=== PATIENT | female | born 1950 | race Hispanic/Latino ===

== ENCOUNTER 2018-10-08 12:11 | Emergency (ER) | payer OTHER ==
--- NOTE | 2018-10-08 12:35 | EDPHYS ---
Physician Documentation [facility] Name: Madhuri Ta Age: 67 yrs Sex: Female : 1950 Arrival Date: 10/08/2018 Time: 12:17 Bed 12 Private MD: Sharee Piedra F ED Physician Lj Gray HPI: 10/08 12:31 This 67 yrs old Female presents to ER via Ambulatory with complaints of Right pm1 Ear Pain. 12:31 The patient presents with pain. The complaints affect the right ear. Onset: The pm1 symptoms/episode began/occurred 3 day(s) ago. Modifying factors: The symptoms are alleviated by nothing, the symptoms are aggravated by nothing. Associated signs and symptoms: Pertinent negatives: cough, fever, nausea, sinus trouble, vomiting. Severity of symptoms: in the emergency department the symptoms are worse. The patient has experienced similar episodes in the past, several times, today's symptoms are similar, ear pain with getting water in ear while washing hair. The patient has not recently seen a physician. Historical: - Allergies: 12:16 No Known Allergies; hj - PMHx: 12:16 None; hj - PSHx: 12:16 None; hj - Immunization history:: Adult Immunizations not immunized. - Social history:: Smoking status: Patient/guardian denies using tobacco, Patient/guardian denies using alcohol. - Ebola Screening: : Patient negative for fever greater than or equal to 101.5 degrees Fahrenheit, and additional compatible Ebola Virus Disease symptoms Patient denies exposure to infectious person Patient denies travel to an Ebola-affected area in the 21 days before illness onset. ROS: 12:31 Constitutional: Negative for fever, chills, and weight loss, Eyes: Negative for injury, pm1 pain, redness, and discharge, Neck: Negative for injury, pain, and swelling, Cardiovascular: Negative for chest pain, palpitations, and edema, Respiratory: Negative for shortness of breath, cough, wheezing, and pleuritic chest pain, Abdomen/GI: Negative for abdominal pain, nausea, vomiting, diarrhea, and constipation, Back: Negative for injury and pain. 12:31 MS/Extremity: Negative for injury and deformity, Skin: Negative for injury, rash, and discoloration, Neuro: Negative for headache, weakness, numbness, tingling, and seizure. 12:31 ENT: Positive for ear pain, Negative for drainage from ear(s), sore throat. Exam: 12:31 Constitutional: This is a well developed, well nourished patient who is awake, alert, pm1 and in no acute distress. Head/Face: Normocephalic, atraumatic. Eyes: Pupils equal round and reactive to light, extra-ocular motions intact. Lids and lashes normal. Conjunctiva and sclera are non-icteric and not injected. Cornea within normal limits. Periorbital areas with no swelling, redness, or edema. 12:31 Neck: Trachea midline, no thyromegaly or masses palpated, and no cervical lymphadenopathy. Supple, full range of motion without nuchal rigidity, or vertebral point tenderness. No Meningismus. Chest/axilla: Normal chest wall appearance and motion. Nontender with no deformity. No lesions are appreciated. Cardiovascular: Regular rate and rhythm with a normal S1 and S2. No gallops, murmurs, or rubs. Normal PMI, no JVD. No pulse deficits. Respiratory: Lungs have equal breath sounds bilaterally, clear to auscultation and percussion. No rales, rhonchi or wheezes noted. No increased work of breathing, no retractions or nasal flaring. Abdomen/GI: Soft, non-tender, with normal bowel sounds. No distension or tympany. No guarding or rebound. No evidence of tenderness throughout. Back: No spinal tenderness. No costovertebral tenderness. Full range of motion. Skin: Warm, dry with normal turgor. Normal color with no rashes, no lesions, and no evidence of cellulitis. MS/ Extremity: Pulses equal, no cyanosis. Neurovascular intact. Full, normal range of motion. 12:31 ENT: External ear(s): are unremarkable, Ear canal(s): erythema, that is minimal, of the right canal, TM's: bulging, on the right, erythema, that is mild, on the right, rupture, is not appreciated, Nose: is normal, Mouth: is normal, Posterior pharynx: is normal. 12:31 Neuro: Orientation: is normal, Motor: is normal, moves all fours. Vital Signs: 12:17 BP 150 / 73; Pulse 80; Resp 18; Temp 98.8(TE); Pulse Ox 96% on R/A; Weight 67.13 kg; hj Height 5 ft. 2 in. (157.48 cm); Pain 10/10; 12:17 Body Mass Index 27.07 (67.13 kg, 157.48 cm) MDM: 12:24 Patient medically screened. pm1 12:32 Data reviewed: vital signs. Data interpreted: Pulse oximetry: on room air is 96 %. pm1 Interpretation: normal. Counseling: I had a detailed discussion with the patient and/or guardian regarding: the historical points, exam findings, and any diagnostic results supporting the discharge/admit diagnosis, the need for outpatient follow up, an ENT specialist, to return to the emergency department if symptoms worsen or persist or if there are any questions or concerns that arise at home. Administered Medications: No medications were administered Disposition: 13:18 Co-signature as Attending Physician, Lj Gray MD I agree with the assessment and kdr plan of care. Disposition: 10/08/18 12:33 Discharged to Home. Impression: Otitis media, unspecified, right ear, Unspecified otitis externa, right ear. - Condition is Stable. - Discharge Instructions: Otitis Media, Adult, Otitis Externa. - Prescriptions for Cortisporin 3.5- 10,000-1 mg/mL-unit/mL-% Otic solution - instill 4 drop by OTIC route every 6 hours for 10 days; 1 bottle. Amoxicillin 500 mg Oral Capsule - take 1 capsule by ORAL route every 8 hours for 10 days; 30 tablet. - Medication Reconciliation Form, Thank You Letter, Antibiotic Education, Prescription Opioid Use form. - Follow up: Emergency Department; When: As needed; Reason: Worsening of condition. Follow up: Private Physician; When: 2 - 3 days; Reason: Recheck today's complaints, Continuance of care, Re-evaluation by your physician. - Problem is new. - Symptoms have improved. Signatures: Lj Gray MD MD [facility] Surinder Goldberg RN RN hj Jed Roland, JOHNNY VICE PRESIDENT AND PORT[employer]IO MANAGER pm1 Corrections: (The following items were deleted from the chart) 12:40 12:33 10/08/2018 12:33 Discharged to Home. Impression: Otitis media, unspecified, right hj ear; Unspecified otitis externa, right ear. Condition is Stable. Forms are Medication Reconciliation Form, Thank You Letter, Antibiotic Education, Prescription Opioid Use. Follow up: Emergency Department; When: As needed; Reason: Worsening of condition. Follow up: Private Physician; When: 2 - 3 days; Reason: Recheck today's complaints, Continuance of care, Re-evaluation by your physician. Problem is new. Symptoms have improved. pm1
--- NOTE | 2018-10-08 12:35 | ER ---
Nurse's Notes [facility] Name: Madhuri Ta Age: 67 yrs Sex: Female : 1950 Arrival Date: 10/08/2018 Time: 12:17 Bed 12 Private MD: Sharee Piedra F Diagnosis: Otitis media, unspecified, right ear;Unspecified otitis externa, right ear Presentation: 10/08 12:15 Presenting complaint: Patient states: i have R ear pain for 3 days now and i cant take hj it anymore; denies discharges;. Transition of care: patient was not received from another setting of care. Onset of symptoms was October 08, 2018. Risk Assessment: Do you want to hurt yourself or someone else? Patient reports no desire to harm self or others. Initial Sepsis Screen: Does the patient meet any 2 criteria? No. Patient's initial sepsis screen is negative. Does the patient have a suspected source of infection? No. Patient's initial sepsis screen is negative. Care prior to arrival: None. 12:15 Method Of Arrival: Ambulatory 12:15 Acuity: JOSE 4 hj Triage Assessment: 12:39 General: Appears in no apparent distress. uncomfortable, Behavior is calm, cooperative, hj appropriate for age. Pain: Complains of pain in right ear. EENT: Reports pain in right ear. Historical: - Allergies: 12:16 No Known Allergies; hj - PMHx: 12:16 None; hj - PSHx: 12:16 None; hj - Immunization history:: Adult Immunizations not immunized. - Social history:: Smoking status: Patient/guardian denies using tobacco, Patient/guardian denies using alcohol. - Ebola Screening: : Patient negative for fever greater than or equal to 101.5 degrees Fahrenheit, and additional compatible Ebola Virus Disease symptoms Patient denies exposure to infectious person Patient denies travel to an Ebola-affected area in the 21 days before illness onset. Screenin:39 Abuse screen: Denies threats or abuse. Denies injuries from another. Nutritional hj screening: No deficits noted. Tuberculosis screening: No symptoms or risk factors identified. Fall Risk None identified. Vital Signs: 12:17 BP 150 / 73; Pulse 80; Resp 18; Temp 98.8(TE); Pulse Ox 96% on R/A; Weight 67.13 kg; hj Height 5 ft. 2 in. (157.48 cm); Pain 10/10; 12:17 Body Mass Index 27.07 (67.13 kg, 157.48 cm) ED Course: 12:16 Triage completed. hj 12:17 Patient arrived in ED. mr 12:17 Arm band placed on right wrist. hj 12:18 Sharee Piedra MD is Private Physician. mr 12:19 Jed Roland [facility] pm1 12:19 Lj Gray MD is Attending Physician. pm1 12:39 No provider procedures requiring assistance completed. Patient did not have IV access hj during this emergency room visit. 12:40 Patient has correct armband on for positive identification. Side rails up X 1. hj Administered Medications: No medications were administered Outcome: 12:33 Discharge ordered by MD. pm1 12:40 Discharged to home ambulatory. hj 12:40 Condition: stable 12:40 Discharge instructions given to patient, Instructed on discharge instructions, follow up and referral plans. medication usage, Demonstrated understanding of instructions, follow-up care, medications, Prescriptions given X 2. 12:40 Patient left the ED. Signatures: Efren Trang mr YusufSurinder, RN RN Jed Roland NP BUDGET CONTROLLER pm1 Corrections: (The following items were deleted from the chart) 12:18 12:17 Pulse 80bpm; Resp 18bpm; Pulse Ox 96% RA; Temp 98.8F Temporal; 67.13 kg; Height 5 hj ft. 2 in.; BMI: 27.0; Pain 10/10; hj
== END 2018-10-08 12:40 | disposition home or self-care (01) ==
LOC: ER 12:11
DX: H66.91 Otitis media, unspecified, right ear (principal); H60.91 Unspecified otitis externa, right ear
CPT/HCPCS: 99282

== ENCOUNTER 2019-12-07 12:55 | Emergency (ER) | payer OTHER ==
--- NOTE | 2019-12-07 14:11 | EDPHYS ---
Physician Documentation [facility] Name: Madhuri Ta Age: 69 yrs Sex: Female : 1950 Arrival Date: 12/07/2019 Time: 12:57 Bed 24 Private MD: ED Physician Valentin Khalil HPI: 12/06 14:07 This 69 yrs old Female presents to ER via Ambulatory with complaints of Rash - jmm poison mell. 14:07 The patient's rash thought to be caused by Dermatitis. Onset: The symptoms/episode jmm began/occurred gradually, 1 month(s) ago. Associated signs and symptoms: Pertinent positives: itching, Pertinent negatives: fever, Pain swelling of lips, swelling of throat, swelling of tongue. This is a 69 year old female with no chronic medical conditions that presents to the ED with complaints of rash to the right arm which initially began after performing yard work 1 month prior. Symptoms returned this morning after mowing lawn today. . Historical: - Allergies: 13:23 No Known Allergies; jd3 - Home Meds: 13:23 None [Active]; jd3 - PMHx: 13:23 None; jd3 - PSHx: 13:23 ; jd3 - Immunization history:: Adult Immunizations up to date. - Social history:: Smoking status: Patient reports the use of cigarette tobacco products, smokes one pack cigarettes per day. ROS: 14:07 Constitutional: Negative for fever, chills, and weight loss, Cardiovascular: Negative jmm for chest pain, palpitations, and edema, Respiratory: Negative for shortness of breath, cough, wheezing, and pleuritic chest pain. 14:07 MS/extremity: Positive for erythema, swelling. 14:07 All other systems are negative. Exam: 14:07 Constitutional: This is a well developed, well nourished patient who is awake, alert, jmm and in no acute distress. Head/Face: atraumatic. Eyes: EOMI, no conjunctival erythema appreciated ENT: Moist Mucus Membranes Neck: Trachea midline, Supple Chest/axilla: Normal chest wall appearance and motion. Cardiovascular: Regular rate and rhythm. No edema appreciated Respiratory: Normal respirations, no respiratory distress appreciated Abdomen/GI: Non distended, soft Back: Normal ROM 14:07 Skin: Appearance: Color: normal in color, erythema noted to the right forearm, consistent with dermatitis. 14:07 Neuro: Orientation: is normal, Mentation: is normal, Memory: is normal. 14:07 Psych: Behavior/mood is pleasant, cooperative. Vital Signs: 13:23 BP 155 / 81; Pulse 75; Resp 16 S; Temp 98.2(O); Pulse Ox 99% on R/A; Weight 65.77 kg jd3 (R); Height 5 ft. 2 in. (157.48 cm) (R); Pain 8/10; 14:28 BP 137 / 69; ks5 13:23 Body Mass Index 26.52 (65.77 kg, 157.48 cm) jd3 MDM: 13:42 Patient medically screened. [facility] 14:09 Data reviewed: vital signs, nurses notes. Counseling: I had a detailed discussion with tosha the patient and/or guardian regarding: the historical points, exam findings, and any diagnostic results supporting the discharge/admit diagnosis, the need for outpatient follow up, to return to the emergency department if symptoms worsen or persist or if there are any questions or concerns that arise at home. ED course: Patient is alert and non toxic in appearance in the ED. Patient is advised to follow up with pcp and otherwise given strict return precautions. patient understood and agrees with the plan of care. . Administered Medications: 14:15 Drug: Decadron 10 mg Route: IM; Site: left gluteus; ks5 14:28 Follow up: BP 137 / 69 ks5 Disposition: 12/07 07:17 Co-signature as Attending Physician, Valentin Khalil MD I agree with the assessment and [facility] plan of care. Disposition: 12/07/19 14:10 Discharged to Home. Impression: Dermatitis, unspecified. - Condition is Stable. - Discharge Instructions: Contact Dermatitis. - Prescriptions for Hydroxyzine HCl 25 mg Oral Tablet - take 1 tablet by ORAL route every 6 hours As needed; 30 tablet. Prednisone 20 mg Oral Tablet - take 1 tablet by ORAL route once daily 12 days Please take 3 tabs by mouth daily for 3 days, then take 2 tabs by mouth daily for 3 days, then take 1 tab by mouth daily for 3 days, then take 1/2 tab by mouth daily for 3 days.; 20 tablet. - Medication Reconciliation Form, Thank You Letter, Antibiotic Education, Prescription Opioid Use form. - Follow up: Private Physician; When: 2 - 3 days; Reason: Recheck today's complaints, Continuance of care, Re-evaluation by your physician. Signatures: Valentin Khalil MD MD cha Mickail, Joel, PA PA jmm Calderon, Audri, RN RN aa5 Martha Kern RN RN ks5 Armani Kramer RN RN jd3 Corrections: (The following items were deleted from the chart) 12/06 14:38 14:10 12/07/2019 14:10 Discharged to Home. Impression: Dermatitis, unspecified. aa5 Condition is Stable. Forms are Medication Reconciliation Form, Thank You Letter, Antibiotic Education, Prescription Opioid Use. Follow up: Private Physician; When: 2 - 3 days; Reason: Recheck today's complaints, Continuance of care, Re-evaluation by your physician. tosha
--- NOTE | 2019-12-07 14:11 | ER ---
Nurse's Notes [facility] Name: Madhuri Ta Age: 69 yrs Sex: Female : 1950 Arrival Date: 12/07/2019 Time: 12:57 Bed 24 Private MD: Diagnosis: Dermatitis, unspecified Presentation: 12/06 13:21 Chief complaint: Patient states: "I had poison mell about a week ago, now it flared back jd3 yesterday when I was mowing the lawn.". Coronavirus screen: At this time, the client does not indicate any symptoms associated with coronavirus-19. Ebola Screen: Patient negative for fever greater than or equal to 101.5 degrees Fahrenheit, and additional compatible Ebola Virus Disease symptoms. Initial Sepsis Screen: Does the patient meet any 2 criteria? No. Patient's initial sepsis screen is negative. Does the patient have a suspected source of infection? No. Patient's initial sepsis screen is negative. Risk Assessment: Do you want to hurt yourself or someone else? Patient reports no desire to harm self or others. Onset of symptoms was December 06, 2019. 13:21 Method Of Arrival: Ambulatory jd3 13:21 Acuity: JOSE 4 jd3 Historical: - Allergies: 13:23 No Known Allergies; jd3 - Home Meds: 13:23 None [Active]; jd3 - PMHx: 13:23 None; jd3 - PSHx: 13:23 ; jd3 - Immunization history:: Adult Immunizations up to date. - Social history:: Smoking status: Patient reports the use of cigarette tobacco products, smokes one pack cigarettes per day. Assessment: 14:23 General: Appears in no apparent distress. Pain: Complains of pain in c/o soreness to ks5 right forarm from "poison mell" per pt. Derm: Rash noted that is itchy, red, raised. Vital Signs: 13:23 BP 155 / 81; Pulse 75; Resp 16 S; Temp 98.2(O); Pulse Ox 99% on R/A; Weight 65.77 kg jd3 (R); Height 5 ft. 2 in. (157.48 cm) (R); Pain 8/10; 14:28 BP 137 / 69; ks5 13:23 Body Mass Index 26.52 (65.77 kg, 157.48 cm) jd3 ED Course: 12:57 Patient arrived in ED. as 13:22 Triage completed. jd3 13:23 Arm band placed on. jd3 13:40 Brando Fang PA is PHCP. tosha 13:40 Valentin Khalil MD is Attending Physician. tosha Administered Medications: 14:15 Drug: Decadron 10 mg Route: IM; Site: left gluteus; ks5 14:28 Follow up: BP 137 / 69 ks5 Outcome: 14:10 Discharge ordered by . tsoha 14:21 Discharged to home ambulatory. ks5 14:21 Condition: good 14:21 Discharge instructions given to patient, Instructed on discharge instructions, follow up and referral plans. medication usage, Demonstrated understanding of instructions, follow-up care, medications, Prescriptions given X 2. 14:38 Patient left the ED. aa5 Signatures: Brando Fang PA PA jmm Martinez, Amelia as Calderon, Audri, RN RN aa5 Martha Kern RN RN ks5 Armani Kramer RN RN jd3 Corrections: (The following items were deleted from the chart) 13:25 13:23 Pulse 75bpm; Resp 16bpm; Spontaneous; Pulse Ox 99% RA; Temp 98.2F Oral; 65.77 kg jd3 Reported; Height 5 ft. 2 in. Reported; BMI: 26.5; Pain 8/10; jd3
[2019-12-07] MEDS ORDERED: dexAMETHasone 4 MG/ML VIAL ONE (14:22)
[2019-12-07 14:56] VITALS: TEMP 98.2; O2SAT 99
[2019-12-07 14:57] VITALS: BP 137/69
== END 2019-12-07 14:38 | disposition home or self-care (01) ==
LOC: ER 12:55
DX: L30.9 Dermatitis, unspecified (principal); F17.210 Nicotine dependence, cigarettes, uncomplicated
CPT/HCPCS: 96372; 99283; J1100

== ENCOUNTER 2021-07-09 10:49 | Emergency (ER) | payer OTHER ==
--- OUTSIDE RECORDS SUMMARY | 2021-07-09 10:52 | XMS REPORT | Continuity of Care Document ---
:1950 Author Organization [facility] t Address [address] [place] [address] Dr. Alba [address] [place] [id number] Care Team Providers Name Role Phone PARK_Raúl Attending Clinician Unavailable Kaylee Admitting Clinician Unavailable Problems This patient has no known problems. Allergies, Adverse Reactions, Alerts This patient has no known allergies or adverse reactions. Medications This patient has no known medications. Procedures This patient has no known procedures. Encounters Start End Encounter Admission Attending Care Care Encounter Source Date/Time Date/Time Type Type Clinicians Facility Department ID 2021-05-31 2021-05-31 Outpatient [facility]Fow PRIV PRIV [id number] NPI:[id number] 06:[id number] 06:41:00 tee-Laila [id number] 2021-05-27 2021-05-27 Outpatient [facility] PRIV PRIV [id number] NPI:[id number] 03:[id number] 03:50:00 ler-Adamaldgabino [id number] Results This patient has no known results.
[2021-07-09] MEDS ORDERED: FLUORESCEIN SODIUM 1 MG/WRAP ONE (12:14)
[2021-07-09] MEDS ORDERED: TETRACAINE HCL 0.5% 4ML OPTH ONE (12:14)
[2021-07-09] MEDS ORDERED: HYDROCODONE/APAP 10/325 TAB ONE (12:40)
[2021-07-09] MEDS ORDERED: VALACYCLOVIR 500 MG TAB ONE (12:40)
--- NOTE | 2021-07-09 13:07 | RAD REPORT ---
EXAM DESCRIPTION: CT - Head Brain Wo Cont - 07/09/2021 12:57 pm CLINICAL HISTORY: Headache, new or worsening COMPARISON: HEAD BRAIN W O CONTRAST dated 09/21/2009 TECHNIQUE: All CT scans are performed using dose optimization technique as appropriate and may inclu de automated exposure control or mA/KV adjustment according to patient size. FINDINGS: No intracranial hemorrhage, hydrocephalus or extra-axial fluid collection.No areas of brai n edema or evidence of midline shift. Ethmoid air cell thickening. Left maxillary sinus thickening. The calvarium is intact. IMPRESSION: No acute intracranial abnormality.
[2021-07-09] MEDS ORDERED: NA CHLORIDE 0.9% 1,000 ML ONE (13:16)
[2021-07-09] MEDS ORDERED: FENTANYL CITR 100 MCG/2 ML ONE (13:16)
[2021-07-09] MEDS ORDERED: ONDANSETRON 4 MG/2 ML VIAL ONE (13:16)
[2021-07-09 13:24] LABS: Absolute Lymphocytes (CBC) 2.5 K/uL (0.7-4.9); Hematocrit 39.2 % (36.0-45.0); Lymphocytes % 37.7 % (15.3-44.8); MPV 8.1 fL (7.6-11.3); RBC Red Blood Cell Count 4.44 M/uL (3.86-4.86)
[2021-07-09 13:47] LABS: Albumin 3.5 g/dL (3.4-5.0); Bilirubin Total 0.3 mg/dL (0.2-1.0); C-Reactive Protein 7.22 mg/L (<3.00); Potassium 4.3 mmol/L (3.5-5.1); Protein, Total 7.8 g/dL (6.4-8.2)
--- NOTE | 2021-07-09 13:52 | EDPHYS ---
[facility] Name: Madhuri Ta Age: 70 yrs Sex: Female : 1950 Arrival Date: 07/09/2021 Time: 11:03 Bed 18 Private MD: Sharee Piedra F ED Physician Valentin Khalil HPI: 07/09 12:53 This 70 yrs old Female presents to ER via Ambulatory with complaints of Eye kyle Problem. 12:53 to the right eye. Onset: The symptoms/episode began/occurred 5 day(s) ago. Duration: kyle the symptoms are continuous. Aggravated by blinking, Alleviated by blinking. Associated signs and symptoms: Pertinent positives: headache. Patient does not utilize any form of vision correction. Severity of symptoms: At their worst the symptoms were moderate in the emergency department the symptoms are unchanged. The patient has not experienced similar symptoms in the past. Historical: - Allergies: 11:25 No Known Allergies; ss - PMHx: 11:27 hypertension; ss - Immunization history:: Client reports having NOT received the Covid vaccine. - Social history:: Smoking status: Patient denies any tobacco usage or history of. - Family history:: not pertinent. ROS: 12:53 Constitutional: Negative for fever, chills, and weight loss, ENT: Negative for injury, kyle pain, and discharge, Neck: Negative for injury, pain, and swelling, Cardiovascular: Negative for chest pain, palpitations, and edema, Respiratory: Negative for shortness of breath, cough, wheezing, and pleuritic chest pain, Abdomen/GI: Negative for abdominal pain, nausea, vomiting, diarrhea, and constipation, Back: Negative for injury and pain, : Negative for injury, bleeding, discharge, and swelling, MS/Extremity: Negative for injury and deformity, Skin: Negative for injury, rash, and discoloration, Neuro: Negative for headache, weakness, numbness, tingling, and seizure, Psych: Negative for depression, anxiety, suicide ideation, homicidal ideation, and hallucinations, Allergy/Immunology: Negative for hives, rash, and allergies, Endocrine: Negative for neck swelling, polydipsia, polyuria, polyphagia, and marked weight changes, Hematologic/Lymphatic: Negative for swollen nodes, abnormal bleeding, and unusual bruising. 12:53 Eyes: Positive for pain, photophobia, redness, of the outer aspect of conjuctiva of right eye, iris of right eye and inner aspect of conjuctiva of right eye. Exam: 12:53 Constitutional: This is a well developed, well nourished patient who is awake, alert, kyle and in no acute distress. Head/Face: Normocephalic, atraumatic. ENT: Nares patent. No nasal discharge, no septal abnormalities noted. Tympanic membranes are normal and external auditory canals are clear. Oropharynx with no redness, swelling, or masses, exudates, or evidence of obstruction, uvula midline. Mucous membranes moist. Neck: Trachea midline, no thyromegaly or masses palpated, and no cervical lymphadenopathy. Supple, full range of motion without nuchal rigidity, or vertebral point tenderness. No Meningismus. Chest/axilla: Normal chest wall appearance and motion. Nontender with no deformity. No lesions are appreciated. Cardiovascular: Regular rate and rhythm with a normal S1 and S2. No gallops, murmurs, or rubs. Normal PMI, no JVD. No pulse deficits. Respiratory: Lungs have equal breath sounds bilaterally, clear to auscultation and percussion. No rales, rhonchi or wheezes noted. No increased work of breathing, no retractions or nasal flaring. Abdomen/GI: Soft, non-tender, with normal bowel sounds. No distension or tympany. No guarding or rebound. No evidence of tenderness throughout. Back: No spinal tenderness. No costovertebral tenderness. Full range of motion. Female : Normal external genitalia. Skin: Warm, dry with normal turgor. Normal color with no rashes, no lesions, and no evidence of cellulitis. MS/ Extremity: Pulses equal, no cyanosis. Neurovascular intact. Full, normal range of motion. Neuro: Awake and alert, GCS 15, oriented to person, place, time, and situation. Cranial nerves II-XII grossly intact. Motor strength 5/5 in all extremities. Sensory grossly intact. Cerebellar exam normal. Normal gait. Psych: Awake, alert, with orientation to person, place and time. Behavior, mood, and affect are within normal limits. 12:53 Eyes: Periorbital structures: appear normal, no acute changes, no abrasion, no cellulitis, no contusion, no ecchymosis, no erythema, no laceration, no swelling, Pupils: no acute changes, equal, round, and reactive to light and accomodation, Extraocular movements: no acute changes, Conjunctiva: injected, Corneas: are normal, no evidence of abrasion, no foreign body, no acute changes, no evidence of abrasion, no foreign body, abrasion, is not appreciated, Sclera: injected. 12:53 Eyes: Anterior chamber: normal, no acute changes, Lids and lashes: edema, of the right eye, Visual fuentes: are intact, no acute changes, Nystagmus: is not appreciated. Vital Signs: 11:26 BP 146 / 86; Pulse 76; Resp 15; Temp 98.3(TE); Pulse Ox 98% on R/A; Weight 68.95 kg; ss Height 5 ft. 3 in. (160.02 cm); Pain 10/10; 12:40 BP 166 / 78; Pulse 63; Resp 18; Pulse Ox 97% on R/A; ld1 13:17 BP 153 / 68; Pulse 61; Resp 18; Pulse Ox 94% on R/A; ld1 14:03 BP 135 / 64; Pulse 63; Resp 18; Pulse Ox 95% on R/A; ld1 11:26 Body Mass Index 26.93 (68.95 kg, 160.02 cm) ss Procedures: 13:53 Performed right eye jennifer pen 13 and [address] [facility] MDM: 11:55 Patient medically screened. kyle 13:00 Differential diagnosis: Corneal abrasion of Corneal ulcer of Foreign body in Acute kyle iritis of Acute glaucoma in right eye. Data reviewed: vital signs, nurses notes, lab test result(s), radiologic studies, CT scan. Data interpreted: satellite project site monitor: rate is 63 beats/min, rhythm is regular, Pulse oximetry: on room air is 97 %. Counseling: I had a detailed discussion with the patient and/or guardian regarding: the historical points, exam findings, and any diagnostic results supporting the discharge/admit diagnosis, lab results, radiology results, the need for outpatient follow up, for definitive care, an opthalmologist. 13:55 Physician consultation: Jason Blake MD and will see patient in office, later today. [facility] 07/09 12:52 Order name: Sed Rate; Complete Time: 13:50 [facility] 07/09 12:52 Order name: CRP; Complete Time: 13:49 kyle 07/09 12:36 Order name: CT Head Brain wo Cont; Complete Time: 13:30 ll1 07/09 12:52 Order name: CBC with Diff; Complete Time: 13:50 [facility] 07/09 12:52 Order name: Comprehensive Metabolic Panel; Complete Time: 13:49 kyle 07/09 12:10 Order name: Eye Tray; Complete Time: 12:10 [facility] 07/09 12:10 Order name: Misc. Order: jennifer pen; Complete Time: 12:10 [facility] Administered Medications: 12:39 Drug: valACYclovir 1000 mg Route: PO; ld1 12:40 Drug: Tetracaine Solution (2 %) 1 drops Route: Topical; Site: affected area; ld1 12:40 Drug: [place] (HYDROcodone-acetaminophen) 10 mg-325 mg 1 tabs Route: PO; ld1 13:15 Drug: fentaNYL (PF) 50 mcg Route: IVP; Site: right antecubital; ld1 13:15 Drug: Zofran (Ondansetron) 4 mg Route: IVP; Site: right antecubital; ld1 13:16 Drug: NS 0.9% 1000 ml Route: IV; Rate: 1 bolus; Site: right antecubital; ld1 Disposition Summary: 07/09/21 13:52 Discharge Ordered Location: Home kyle Problem: new kyle Symptoms: have improved kyle Condition: Stable kyle Diagnosis - Ocular pain, right eye kyle - Zoster without complications kyle - Other acute sinusitis kyle Followup: kyle - With: - When: 1 - 2 days - Reason: Recheck today's complaints, Continuance of care, Re-evaluation by your physician Followup: kyle - With: - When: Upon discharge from the Emergency Department - Reason: Recheck today's complaints, Continuance of care, Re-evaluation by your physician Discharge Instructions: - Discharge Summary Sheet kyle - Shingles kyle - Shingles, [id number] kyle - Sinusitis, Adult kyle - Sinusitis, Adult, [id number] kyle Forms: - Medication Reconciliation Form kyle - Thank You Letter kyle - Antibiotic Education kyle - Prescription Opioid Use kyle Prescriptions: - Bactrim DS 800-160 mg Oral Tablet - take 1 tablet by ORAL route every 12 hours for 10 days; 20 tablet; Refills: 0, kyle Product Selection Permitted - Tylenol-Codeine #3 300 mg-30 mg Oral - take 2 tablet by ORAL route every 6 hours; 20 tablet; Refills: 0, Product kyle Selection Permitted - Valtrex 1 gram Oral tablet - take 1 tablet by ORAL route 3 times per day for 7 days; 21 tablet; Refills: 0, cp Product Selection Permitted Signatures: Dispatcher [employer] Valentin Salinas MD MD cha Smirch, Shelby, RN RN ss Katy Ratliff RN RN ld1
--- NOTE | 2021-07-09 13:52 | ER ---
Nurse's Notes [facility] Name: Madhuri Ta Age: 70 yrs Sex: Female : 1950 Arrival Date: 07/09/2021 Time: 11:03 Bed 18 Private MD: Sharee Piedra F Diagnosis: Ocular pain, right eye;Zoster without complications;Other acute sinusitis Presentation: 07/09 11:26 Chief complaint: Patient states: R eye redness and pain that began 1 week ago. Pt ss reports that the pain comes and goes. Also c/o R sided headache and facial pain. Coronavirus screen: Client denies travel out of the [place] in the last 14 days. Ebola Screen: Patient denies exposure to infectious person. Patient denies travel to an Ebola-affected area in the 21 days before illness onset. Initial Sepsis Screen: Does the patient meet any 2 criteria? No. Patient's initial sepsis screen is negative. Does the patient have a suspected source of infection? No. Patient's initial sepsis screen is negative. Risk Assessment: Do you want to hurt yourself or someone else? Patient reports no desire to harm self or others. Onset of symptoms was July 03, 2021. 11:26 Method Of Arrival: Ambulatory ss 11:26 Acuity: JOSE 4 ss Historical: - Allergies: 11:25 No Known Allergies; ss - PMHx: 11:27 hypertension; ss - Immunization history:: Client reports having NOT received the Covid vaccine. - Social history:: Smoking status: Patient denies any tobacco usage or history of. - Family history:: not pertinent. Screenin:40 Abuse screen: Denies threats or abuse. Denies injuries from another. Nutritional ld1 screening: No deficits noted. Tuberculosis screening: No symptoms or risk factors identified. Fall Risk None identified. Assessment: 12:40 General: Appears in no apparent distress. comfortable, Behavior is calm, cooperative, ld1 appropriate for age. Pain: Denies pain. Neuro: Pierre Agitation-Sedation Scale (RASS): 0 - Alert and Calm Level of Consciousness is awake, alert, obeys commands, Oriented to person, place, time, situation. Cardiovascular: Capillary refill < 3 seconds Patient's skin is warm and dry. Respiratory: Airway is patent Respiratory effort is even, unlabored, Respiratory pattern is regular, symmetrical. GI: Abdomen is flat, non-distended. : No signs and/or symptoms were reported regarding the genitourinary system. EENT: Reports Right eye discomfort. Derm: No signs and/or symptoms reported regarding the dermatologic system. Musculoskeletal: No signs and/or symptoms reported regarding the musculoskeletal system. 13:17 Reassessment: Patient appears in no apparent distress at this time. Patient is alert, ld1 oriented x 3, equal unlabored respirations, skin warm/dry/pink. 14:03 Reassessment: Patient appears in no apparent distress at this time. Patient is alert, ld1 oriented x 3, equal unlabored respirations, skin warm/dry/pink. Patient states feeling better. Vital Signs: 11:26 BP 146 / 86; Pulse 76; Resp 15; Temp 98.3(TE); Pulse Ox 98% on R/A; Weight 68.95 kg; ss Height 5 ft. 3 in. (160.02 cm); Pain 10/10; 12:40 BP 166 / 78; Pulse 63; Resp 18; Pulse Ox 97% on R/A; ld1 13:17 BP 153 / 68; Pulse 61; Resp 18; Pulse Ox 94% on R/A; ld1 14:03 BP 135 / 64; Pulse 63; Resp 18; Pulse Ox 95% on R/A; ld1 11:26 Body Mass Index 26.93 (68.95 kg, 160.02 cm) ED Course: 11:03 Patient arrived in ED. mr 11:03 Sharee Piedra MD is Private Physician. mr 11:27 Triage completed. ss 11:27 Arm band placed on left wrist. ss 11:38 Valentin Khalil MD is Attending Physician. kyle 12:05 Katy Ratliff, MICHAEL is Primary Nurse. ld1 12:40 Patient has correct armband on for positive identification. Placed in gown. Bed in low ld1 position. Call light in reach. Side rails up X2. monitor technician on. Pulse ox on. NIBP on. Door closed. Noise minimized. Warm blanket given. 12:57 CT Head Brain wo Cont In Process Unspecified. EDMS 13:51 Sharee Piedra MD is Referral Physician. kyle 13:51 Jason Blake MD is Referral Physician. kyle 14:04 No provider procedures requiring assistance completed. IV discontinued, intact, ld1 bleeding controlled, No redness/swelling at site. Administered Medications: 12:39 Drug: valACYclovir 1000 mg Route: PO; ld1 12:40 Drug: Tetracaine Solution (2 %) 1 drops Route: Topical; Site: affected area; ld1 12:40 Drug: [place] (HYDROcodone-acetaminophen) 10 mg-325 mg 1 tabs Route: PO; ld1 13:15 Drug: fentaNYL (PF) 50 mcg Route: IVP; Site: right antecubital; ld1 13:15 Drug: Zofran (Ondansetron) 4 mg Route: IVP; Site: right antecubital; ld1 13:16 Drug: NS 0.9% 1000 ml Route: IV; Rate: 1 bolus; Site: right antecubital; ld1 Outcome: 13:52 Discharge ordered by MD. [facility] 14:04 Discharged to home ambulatory. ld1 14:04 Condition: stable 14:04 Discharge instructions given to patient, Instructed on discharge instructions, follow up and referral plans. medication usage, Demonstrated understanding of instructions, follow-up care, medications, Prescriptions given X 3. 14:04 Patient left the ED. ld1 Signatures: Dispatcher [employer] EDMS Valentin Khalil MD MD cha Rivera, Mary mr Gissel Iqbal RN RN ss Dibbern, Lauren, RN RN ld1
[2021-07-09 15:07] VITALS: TEMP 98.3
[2021-07-09 15:12] VITALS: BP 135/64; O2SAT 95
== END 2021-07-09 14:04 | disposition home or self-care (01) ==
LOC: ER 10:49
DX: B02.9 Zoster without complications (principal); J01.80 Other acute sinusitis; R51.9 Headache, unspecified; I10 Essential (primary) hypertension
CPT/HCPCS: 85025; 36415; 85652; 80053; 86140; 70450; 96375; 96374; 99284; J3010; J7030; J2405

== ENCOUNTER 2022-02-13 13:06 | Inpatient (IN) | payer OTHER ==
--- OUTSIDE RECORDS SUMMARY | 2022-02-13 13:08 | XMS REPORT | Continuity of Care Document ---
:1950 Author Organization [facility] t Address [address] [place] [address] Dr. Alba [address] [place] [id number] Care Team Providers Name Role Phone PARK_Raúl [...] 2021-05-31 2021-05-31 Outpatient GC_BATC_Fow PRIV PRIV [id number] [facility] 06:41:00 06:41:00 ler-Laila [id number] [facility] conrado 2021-05-27 2021-05-27 Outpatient GC_BATC_Fow PRIV PRIV [id number] [facility] 03:50:00 03:50:00 ler-Gulde [id number] [place] Results This patient has no known results.
[2022-02-13 13:44] LABS: Absolute Lymphocytes (CBC) 3.1 K/uL (0.7-4.9); Lymphocytes % 31.3 % (15.3-44.8); MPV 8.9 fL (7.6-11.3); RBC Red Blood Cell Count 4.32 M/uL (3.86-4.86)
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
[2022-02-13 14:08] LABS: Potassium 4.5 mmol/L (3.5-5.1)
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
[2022-02-13] MEDS ORDERED: ONDANSETRON 4 MG/2 ML VIAL ONE (15:45)
[2022-02-13] MEDS ORDERED: MORPHINE 4 MG/ML SYR ONE (15:45)
[2022-02-13] MEDS ORDERED: FENTANYL CITR 100 MCG/2 ML ONE (15:58)
[2022-02-13] MEDS ORDERED: HYDROCODONE/APAP 5/325 MG TAB PO PRN (16:56)
[2022-02-13] MEDS: NA CHLORIDE 0.9% 1,000 ML IV SCH ×2 (17:00→21:37)
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
[2022-02-13 18:01] LABS: SARS-CoV-2 Antigen Rapid Res Negative (Negative)
[2022-02-13] MEDS ORDERED: ONDANSETRON 4 MG/2 ML VIAL IV PRN (18:35)
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
[2022-02-13 20:26] VITALS: BMI 24.7
[2022-02-13 20:57] LABS: Urine Bilirubin NEGATIVE (Negative); Urine Blood 1+ (Negative); Urine Clarity Clear (Clear); Urine Color Light-Yellow (Yellow); Urine Glucose NEGATIVE (Negative); Urine Mucus Slight /HPF (None Seen); Urine Protein TRACE (Negative); Urine Urobilinogen Normal (Normal); Urine pH 5.5 (5.0-7.0)
[2022-02-13 21:02] LABS: Specific Gravity > 1.030 (1.005-1.030)
[2022-02-13] MEDS: HYDROCODONE/APAP 10/325 TAB PO PRN (21:37)
[2022-02-14] MEDS: NA CHLORIDE 0.9% 1,000 ML IV SCH ×6 (01:00→22:51)
[2022-02-14 04:04] LABS: Absolute Lymphocytes (CBC) 1.7 K/uL (0.7-4.9); Hematocrit 34.5 % (36.0-45.0); Lymphocytes % 18.9 % (15.3-44.8); MCV 88.9 fL (80-100); MPV 8.6 fL (7.6-11.3); RBC Red Blood Cell Count 3.88 M/uL (3.86-4.86)
[2022-02-14 04:14] LABS: Magnesium 2.2 mg/dL (1.6-2.4); Phosphorus 2.8 mg/dL (2.5-4.9)
[2022-02-14 04:17] LABS: Potassium 4.4 mmol/L (3.5-5.1)
[2022-02-14] MEDS: HYDROCODONE/APAP 10/325 TAB PO PRN ×2 (04:55→21:08)
[2022-02-14] MEDS: NICOTINE 21 MG/PAT TD SCH (07:46)
[2022-02-14] MEDS ORDERED: INFLUENZA VACCINE (for 6+ mo) 0.5 ML DOSE IMVAC ONE (08:00)
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
--- NOTE | 2022-02-14 09:07 | RAD REPORT ---
EXAM DESCRIPTION: CT - Knee Right Wo Cont - 02/14/2022 8:52 am CLINICAL HISTORY: knee pain COMPARISON: Femur Right dated 02/13/2022; Tib Fib Right dated 02/13/2022 TECHNIQUE: Axial noncontrast 2 millimeter thick images were obtained of the right knee. Sagittal and coronal reformatted images were generated and reviewed. All CT scans are performed using dose optimization technique as appropriate and may include automate d exposure control or mA/KV adjustment according to patient size. FINDINGS: Distal femur and patella are intact. Oblique fracture is present through the proximal shaf t of the fibula without any significant distraction or angulation deformity. Lateral tibial plateau fracture is present. There is a 2.2 centimeter sized fracture fragment in the lateral tibial plateau depressed 4 mm. Medial tibial plateau is intact. Patient has underlying narrowing of the medial compartment. No significant marginal spurs present. No pathologic bone process seen. Moderate-size lipoma hemarthrosis present. Skeletal muscles are unremarkable. No significant extra-articular finding. IMPRESSION: A 2.2 centimeter sized, 4 mm depressed lateral tibial plateau fracture. Proximal fibula shaft fracture without distraction or angulation deformity. Moderate-sized lipohemarthrosis. Underlying medial compartment degenerative change.
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
[2022-02-14] MEDS: ENOXAPARIN 40 MG/0.4 ML SQ SCH (11:43)
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
[2022-02-15] MEDS: NA CHLORIDE 0.9% 1,000 ML IV SCH ×4 (01:00→18:15)
[2022-02-15] MEDS: HYDRALAZINE HCL 20 MG/ML VIAL IV PRN (03:07)
[2022-02-15] MEDS ORDERED: BISACODYL 10 MG RECTAL SUPP PR ONE (03:21)
[2022-02-15] MEDS: NICOTINE 21 MG/PAT TD SCH (08:30)
[2022-02-15] MEDS: ENOXAPARIN 40 MG/0.4 ML SQ SCH (08:30)
--- NOTE | 2022-02-15 11:32 | RAD REPORT ---
EXAM DESCRIPTION: RAD - Abdomen 1 View (KUB) - 02/15/2022 11:27 am CLINICAL HISTORY: Constipation Pain COMPARISON: No comparisons FINDINGS: The bowel gas pattern is non-obstructive. No evidence of free air or pneumatosis. Prominen t stool is present throughout the colon. No suspicious calcifications. No significant bony findings. Cholelithiasis. IMPRESSION: Cholelithiasis Moderate fecal retention throughout the colon.
[2022-02-15] MEDS: HYDROCODONE/APAP 10/325 TAB PO PRN (13:31)
[2022-02-15] MEDS: LACTULOSE 20 GM/30 ML UCUP PO SCH ×2 (13:52→20:35)
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
[2022-02-16] MEDS: LACTULOSE 20 GM/30 ML UCUP PO SCH ×3 (01:46→14:54)
[2022-02-16] MEDS: HYDROCODONE/APAP 10/325 TAB PO PRN ×2 (04:39→22:14)
[2022-02-16] MEDS: HYDRALAZINE HCL 20 MG/ML VIAL IV PRN (04:39)
[2022-02-16] MEDS: NA CHLORIDE 0.9% 1,000 ML IV SCH (04:41)
[2022-02-16] MEDS ORDERED: NA CHLORIDE 0.9% 1,000 ML IV SCH (07:29)
[2022-02-16] MEDS: NICOTINE 21 MG/PAT TD SCH (08:26)
[2022-02-16] MEDS: ENOXAPARIN 40 MG/0.4 ML SQ SCH (08:26)
[2022-02-16] MEDS ORDERED: ONDANSETRON 4 MG (ODT) TAB PO PRN (15:43)
[2022-02-16] MEDS ORDERED: HYDRALAZINE HCL 10 MG TABLET PO PRN (15:44)
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
[2022-02-16 17:57] LABS: Specific Gravity 1.015 (1.005-1.030); Urine Bacteria <20 /HPF (<20); Urine Bilirubin NEGATIVE (Negative); Urine Blood 1+ (Negative); Urine Clarity Clear (Clear); Urine Color Light-Yellow (Yellow); Urine Glucose NEGATIVE (Negative); Urine Mucus Slight /HPF (None Seen); Urine Protein NEGATIVE (Negative); Urine Urobilinogen 1+ (Normal); Urine pH 6.5 (5.0-7.0)
[2022-02-16] MEDS: SENOSIDES 8.6 MG TAB PO SCH (21:00)
[2022-02-16] MEDS: HYDRALAZINE HCL 25 MG TABLET PO PRN (22:23)
[2022-02-17] MEDS: HYDROCODONE/APAP 10/325 TAB PO PRN ×3 (06:42→22:51)
[2022-02-17] MEDS: NICOTINE 21 MG/PAT TD SCH ×2 (08:50→09:00)
[2022-02-17] MEDS: ENOXAPARIN 40 MG/0.4 ML SQ SCH (08:51)
[2022-02-17] MEDS: SENOSIDES 8.6 MG TAB PO SCH ×2 (08:51→20:03)
[2022-02-17] MEDS: POLYETHYL GLY 3350 17 GM/DOSE PO SCH (08:52)
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
[2022-02-17] MEDS ORDERED: INFLUENZA VACCINE (for 6+ mo) 0.5 ML DOSE IMVAC ONE (17:00)
[2022-02-17] MEDS: HYDRALAZINE HCL 25 MG TABLET PO PRN (20:17)
[2022-02-17 21:45] VITALS: O2SAT 96
[2022-02-18] MEDS: SENOSIDES 8.6 MG TAB PO SCH (08:29)
[2022-02-18 08:30] VITALS: TEMP 98.6
[2022-02-18] MEDS: POLYETHYL GLY 3350 17 GM/DOSE PO SCH (08:30)
[2022-02-18] MEDS: ENOXAPARIN 40 MG/0.4 ML SQ SCH (08:30)
[2022-02-18] MEDS: NICOTINE 21 MG/PAT TD SCH (08:33)
[2022-02-18] MEDS: HYDROCODONE/APAP 10/325 TAB PO PRN ×2 (08:42→14:26)
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
[2022-02-18] MEDS: HYDRALAZINE HCL 25 MG TABLET PO PRN (12:24)
[2022-02-18] MEDS ORDERED: HYDRALAZINE HCL 25 MG TABLET PO ONE (15:03)
[2022-02-18 15:23] VITALS: BP 161/98
== END 2022-02-18 15:45 | DRG 565 ==
LOC: ER 13:06 → ERHOLD 16:57 → 4TH 19:38 → OBSVTOIN 02-15 13:43 → 2ND 02-16 22:00
PROVIDERS: ADMIT Nurse Practitioner Family; ATTEND Surgery
DX: S22.20XA Unspecified fracture of sternum, initial encounter for closed fracture (principal); G93.40 Encephalopathy, unspecified; S82.121A Displaced fracture of lateral condyle of right tibia, initial encounter for closed fracture; S06.0XAA Concussion with loss of consciousness status unknown, initial encounter; S82.401A Unspecified fracture of shaft of right fibula, initial encounter for closed fracture; S22.31XA Fracture of one rib, right side, initial encounter for closed fracture; N18.31 Chronic kidney disease, stage 3a; I12.9 Hypertensive chronic kidney disease with stage 1 through stage 4 chronic kidney disease, or unspecified chronic kidney disease; I10 Essential (primary) hypertension; F17.200 Nicotine dependence, unspecified, uncomplicated; S82.831A Other fracture of upper and lower end of right fibula, initial encounter for closed fracture; V49.9XXA Car occupant (driver) (passenger) injured in unspecified traffic accident, initial encounter
CPT/HCPCS: 36415; 70450; 70470; 71260; 72125; 73700; 74018; 74177; 80048; 80061; 81001; 82565; 82947; 83036; 83735; 84100; 84484; 85025; 87811; 94010; 96374; 96375; 97110; 97116; 97161; 97530; 99284; J0360; J1650; J2405; J3010; J7030; Q9967

== ENCOUNTER 2022-08-23 11:12 | Emergency (ER) | payer OTHER ==
--- OUTSIDE RECORDS SUMMARY | 2022-08-23 11:15 | XMS REPORT | Continuity of Care Document ---
:1950 Author Organization [facility] t Address [address] [place] [address] [place] [id number] Care Team Providers Name Role Phone Bonita Villalobos Anavella Attending Clinician Unava ilable [id number] Attending Clinician Unavailable Kaylee Attending Clinician Unavailable Eric Villalobos Anav Admitting Clinician Unavailable [id number] Admitting Clinician Unavailable Kaylee Admitting Clinician Unavailable Payers Payer Name Policy Type Policy Number Effective Date Expiration Date S jodie NIELSEN [id number] [facility] [id number] Problems This patient has no known problems. Allergies, Adverse Reactions, Alerts This patient has no known allergies or adverse reactions. Medications This patient has no known medications. Procedures This patient has no known procedures. Encounters Start End Encounter Admission Attending Care Care Encounter Source Date/Time Date/Time Type Type Clinicians Facility Department ID 2022-02-17 Outpatient 3 [id number] 16:30:56 gin [facility]16 [facility] [place] 2022-02-16 Outpatient 3 [id number] [facility] [id number] [facility] 08:23:23 1215 [facility] [place] 2022-02-18 2022-02-28 Inpatient 3 [facility] ORW [id number] [facility] 16:13:00 13:30:00 [facility] [place] 2021-05-31 2021-05-31 Outpatient GC_[email or web address] PRIV PRIV [id number] [facility] 06:41:00 06:41:00 Claire [id number] [facility] 2021-05-27 2021-05-27 Outpatient GC_[email or web address] PRIV PRIV [id number] [facility] 03:[id number] Results This patient has no known results.
[2022-08-23 12:19] LABS: Absolute Lymphocytes (CBC) 2.3 K/uL (0.7-4.9); Hematocrit 38.2 % (36.0-45.0); MPV 7.7 fL (7.6-11.3); RBC Red Blood Cell Count 4.29 M/uL (3.86-4.86)
[2022-08-23] MEDS ORDERED: NA CHLORIDE 0.9% 500 ML ONE (12:24)
[2022-08-23] MEDS ORDERED: KETOROLAC 30 MG/ML INJ ONE (12:24)
[2022-08-23] MEDS ORDERED: ONDANSETRON 4 MG/2 ML VIAL ONE (12:24)
[2022-08-23 12:35] LABS: Albumin 3.2 g/dL (3.4-5.0); Bilirubin Total 0.2 mg/dL (0.2-1.0); Potassium 4.2 mEq/L (3.5-5.1); Protein, Total 7.1 g/dL (6.4-8.2)
--- NOTE | 2022-08-23 12:42 | RAD REPORT ---
EXAM DESCRIPTION: CT - CTORBIT CLINICAL HISTORY: eye pain, r/o mass COMPARISON: No comparisons TECHNIQUE: Axial 2 mm thick images of the face were obtained without IV contrast. Multiplanar recons truction images were generated and reviewed. All CT scans are performed using dose optimization technique as appropriate and may include automated exposure control or mA/KV adjustment according to patient size. FINDINGS: No acute facial bone fracture is seen.The mandible is intact. The globes are symmetric. Beam hardening artifact more pronounced along the right lateral canthus park its evaluation. Intra-ocular lens is normally situated bilaterally. Optic nerves is normal in caliber bilaterally. Normal arrangement and caliber of the extraocular muscles. No retro coronal masses or a bnormal fat stranding. No masses at the orbital apex. No extra coronal or subperiosteal fluid collect ions. Surrounding soft tissues are unremarkable. Incidentally noted left middle mckenzie bullosa.Mild mucosal thickening at the maxillary sinus infundib ulum contributes to partial narrowing of the ostiomeatal units bilaterally. Other paranasal sinuses a re clear. No nasal septal deviation. IMPRESSION: No acute abnormalities of the orbits bilaterally. Maxillary sinus mucosal thickening at the infundibula contributes to partial narrowing of the ostiome atal units.
--- NOTE | 2022-08-23 13:35 | ER ---
Nurse's Notes [facility] Name: Madhuri Ta Age: 71 yrs Sex: Female : 1950 Arrival Date: 08/23/2022 Time: 11:12 Bed 7 Private MD: Diagnosis: Ocular pain, right eye;Acute maxillary sinusitis;Acute maxillary sinusitis, unspecified;Essential (primary) hypertension Presentation: 08/23 11:31 Chief complaint: Patient states: intermittent swelling and pain to R eyelid that has ss been ongoing x 6 months. Pt reports that she has seen an extension service specialist multiple times, but they cannot figure out what is wrong with her eye. Coronavirus screen: Client denies travel out of the [place] in the last 14 days. Ebola Screen: Patient denies exposure to infectious person. Patient denies travel to an Ebola-affected area in the 21 days before illness onset. Initial Sepsis Screen: Does the patient meet any 2 criteria? No. Patient's initial sepsis screen is negative. Does the patient have a suspected source of infection? No. Patient's initial sepsis screen is negative. Risk Assessment: Do you want to hurt yourself or someone else? Patient reports no desire to harm self or others. Onset of symptoms was March 2022. 11:31 Method Of Arrival: Ambulatory ss 11:31 Acuity: JOSE 5 ss Triage Assessment: 11:35 General: Appears distressed, Behavior is cooperative, appropriate for age, anxious. bp Pain: Denies pain. EENT: Reports PERIORBITAL EDEMA. Neuro: No deficits noted. Cardiovascular: No deficits noted. Respiratory: No deficits noted. GI: No signs and/or symptoms were reported involving the gastrointestinal system. : No signs and/or symptoms were reported regarding the genitourinary system. Derm: No deficits noted. Musculoskeletal: No deficits noted. Historical: - Allergies: 11:33 No Known Allergies; ss - PMHx: 11:33 Hypertension; ss - Immunization history:: Client reports having NOT received the Covid vaccine. - Social history:: Smoking status: Patient reports the use of cigarette tobacco products, smokes one-half pack cigarettes per day. - Family history:: not pertinent. Screenin:00 [facility] ED Fall Risk Assessment (Adult) History of falling in the last 3 months, bp including since admission No falls in past 3 months (0 pts). Abuse screen: Denies threats or abuse. Denies injuries from another. Nutritional screening: No deficits noted. Tuberculosis screening: No symptoms or risk factors identified. Assessment: 11:35 General: SEE TRIAGE NOTE. bp 12:30 Reassessment: No changes from previously documented assessment. Patient is alert, bp oriented x 3, equal unlabored respirations, skin warm/dry/pink. 14:30 Reassessment: SEE TRIAGE NOTE. bp Vital Signs: 11:31 BP 157 / 71; Pulse 87; Resp 16; Temp 98.3(TE); Pulse Ox 97% on R/A; Weight 64.86 kg; ss Height 5 ft. 3 in. ; Pain 8/10; 12:58 BP 129 / 101; Pulse 72; Resp 18; Pulse Ox 99% on R/A; ld1 14:30 BP 157 / 69; Pulse 75; Resp 16; Pulse Ox 100% ; bp 11:31 Body Mass Index 25.33 (64.86 kg, 160.02 cm) ss 11:31 Pain Scale: Adult ss ED Course: 11:19 Patient arrived in ED. kj1 11:25 Yanick Carney, RN is Primary Nurse. bp 11:32 Valentin Khalil MD is Attending Physician. kyle 11:33 Triage completed. ss 11:33 Arm band placed on right wrist. ss 12:27 Orbits Wo Con W/ Mpr In Process Unspecified. EDMS 12:30 Inserted saline lock: 20 gauge in right forearm, using aseptic technique. Blood bp collected. 13:00 Patient has correct armband on for positive identification. Bed in low position. Call bp light in reach. Side rails up X2. 13:34 Jason Blake MD is Referral Physician. kyle 13:39 Referral Physician role handed off by Jason Blake MD kyle 13:39 Jason Blake MD is Referral Physician. kyle 14:34 No provider procedures requiring assistance completed. IV discontinued, intact, bp bleeding controlled, No redness/swelling at site. Pressure dressing applied. Administered Medications: 12:35 Drug: NS 0.9% IV 500 ml Route: IV; Rate: bolus; Site: right antecubital; bp 14:35 Follow up: IV Status: Completed infusion; IV Intake: 500ml bp 12:35 Drug: Ondansetron IVP 4 mg Route: IVP; Site: right antecubital; bp 14:35 Follow up: Response: No adverse reaction bp 12:36 Drug: Ketorolac IVP 15 mg Route: IVP; Site: right antecubital; bp 14:35 Follow up: Response: No adverse reaction bp 14:00 Drug: Rocephin IV 1 grams Route: IV; Rate: per protocol; Site: right forearm; bp 14:35 Follow up: IV Status: Completed infusion; IV Intake: 100ml bp 14:00 Drug: Amoxicillin-Clavulanate PO 875 mg Route: PO; bp 14:34 Follow up: Response: No adverse reaction bp Medication: 14:34 VIS not applicable for this client. bp Intake: 14:35 IV: 100ml; Total: 100ml. bp 14:35 IV: 500ml; Total: 600ml. bp Outcome: 13:35 Discharge ordered by . kyle 14:34 Discharged to home ambulatory. bp 14:34 Condition: stable 14:34 Discharge instructions given to patient, Instructed on discharge instructions, follow up and referral plans. medication usage, Demonstrated understanding of instructions, follow-up care, medications, Prescriptions given X 3. 14:35 Patient left the ED. ss Signatures: Dispatcher [employer] EDMS Valentin Khalil MD MD cha Blanchard, Shelby, RN RN Yanick Causey RN RN Magi Lugo kj1 Katy Richardson RN RN ld1
--- NOTE | 2022-08-23 13:35 | EDPHYS ---
Physician Documentation [facility] Name: Madhuri Ta Age: 71 yrs Sex: Female : 1950 Arrival Date: 08/23/2022 Time: 11:12 Bed 7 Private MD: ED Physician Valentin Khalil HPI: 08/23 11:58 This 71 yrs old Female presents to ER via Ambulatory with complaints of Eye kyle Problem. 11:58 The patient is experiencing pain, to the right eye. Onset: The symptoms/episode kyle began/occurred 8 month(s) ago. Duration: the symptoms are continuous. Aggravated by nothing. Alleviated by nothing. Associated signs and symptoms: Pertinent positives: None. Pertinent negatives: None. Patient wears glasses. Severity of symptoms: At their worst the symptoms were moderate in the emergency department the symptoms are unchanged. The patient has not experienced similar symptoms in the past. Historical: - Allergies: 11:33 No Known Allergies; ss - PMHx: 11:33 Hypertension; ss - Immunization history:: Client reports having NOT received the Covid vaccine. - Social history:: Smoking status: Patient reports the use of cigarette tobacco products, smokes one-half pack cigarettes per day. - Family history:: not pertinent. ROS: 11:58 Constitutional: Negative for fever, chills, and weight loss, ENT: Negative for injury, kyle pain, and discharge, Neck: Negative for injury, pain, and swelling, Cardiovascular: Negative for chest pain, palpitations, and edema, Respiratory: Negative for shortness of breath, cough, wheezing, and pleuritic chest pain, Abdomen/GI: Negative for abdominal pain, nausea, vomiting, diarrhea, and constipation, Back: Negative for injury and pain, : Negative for injury, bleeding, discharge, and swelling, MS/Extremity: Negative for injury and deformity, Skin: Negative for injury, rash, and discoloration, Neuro: Negative for headache, weakness, numbness, tingling, and seizure, Psych: Negative for depression, anxiety, suicide ideation, homicidal ideation, and hallucinations, Allergy/Immunology: Negative for hives, rash, and allergies, Endocrine: Negative for neck swelling, polydipsia, polyuria, polyphagia, and marked weight changes, Hematologic/Lymphatic: Negative for swollen nodes, abnormal bleeding, and unusual bruising. 11:58 Eyes: Positive for pain, of the inner aspect of conjuctiva of right eye and right inner canthus. Exam: 11:58 Constitutional: This is a well developed, well nourished patient who is awake, alert, kyle and in no acute distress. Head/Face: Normocephalic, atraumatic. Eyes: Pupils equal round and reactive to light, extra-ocular motions intact. Lids and lashes normal. Conjunctiva and sclera are non-icteric and not injected. Cornea within normal limits. Periorbital areas with no swelling, redness, or edema. ENT: Nares patent. No nasal discharge, no septal abnormalities noted. Tympanic membranes are normal and external auditory canals are clear. Oropharynx with no redness, swelling, or masses, exudates, or evidence of obstruction, uvula midline. Mucous membranes moist. Neck: Trachea midline, no thyromegaly or masses palpated, and no cervical lymphadenopathy. Supple, full range of motion without nuchal rigidity, or vertebral point tenderness. No Meningismus. Chest/axilla: Normal chest wall appearance and motion. Nontender with no deformity. No lesions are appreciated. Cardiovascular: Regular rate and rhythm with a normal S1 and S2. No gallops, murmurs, or rubs. Normal PMI, no JVD. No pulse deficits. Respiratory: Lungs have equal breath sounds bilaterally, clear to auscultation and percussion. No rales, rhonchi or wheezes noted. No increased work of breathing, no retractions or nasal flaring. Abdomen/GI: Soft, non-tender, with normal bowel sounds. No distension or tympany. No guarding or rebound. No evidence of tenderness throughout. Back: No spinal tenderness. No costovertebral tenderness. Full range of motion. Skin: Warm, dry with normal turgor. Normal color with no rashes, no lesions, and no evidence of cellulitis. MS/ Extremity: Pulses equal, no cyanosis. Neurovascular intact. Full, normal range of motion. Neuro: Awake and alert, GCS 15, oriented to person, place, time, and situation. Cranial nerves II-XII grossly intact. Motor strength 5/5 in all extremities. Sensory grossly intact. Cerebellar exam normal. Normal gait. Psych: Awake, alert, with orientation to person, place and time. Behavior, mood, and affect are within normal limits. Vital Signs: 11:31 BP 157 / 71; Pulse 87; Resp 16; Temp 98.3(TE); Pulse Ox 97% on R/A; Weight 64.86 kg; ss Height 5 ft. 3 in. ; Pain 8/10; 12:58 BP 129 / 101; Pulse 72; Resp 18; Pulse Ox 99% on R/A; ld1 14:30 BP 157 / 69; Pulse 75; Resp 16; Pulse Ox 100% ; bp 11:31 Body Mass Index 25.33 (64.86 kg, 160.02 cm) ss 11:31 Pain Scale: Adult ss MDM: 11:32 Patient medically screened. kyle 12:11 Differential diagnosis: Corneal abrasion of Corneal ulcer of Foreign body in right eye. [facility] Data reviewed: vital signs, nurses notes, lab test result(s), radiologic studies, CT scan. Consideration of Admission/Observation Escalation of care including admission/observation considered. I considered the following discharge prescriptions or medication management in the emergency department Medications were administered in the Emergency Department. See MAR. Test considered but Not performed: EKG: no ekg. Care significantly affected by the following chronic conditions: Hypertension. Counseling: I had a detailed discussion with the patient and/or guardian regarding: the historical points, exam findings, and any diagnostic results supporting the discharge/admit diagnosis, the presence of at least one elevated blood pressure reading (>120/80) during this emergency department visit, radiology results, the need for outpatient follow up, for definitive care, an opthalmologist. 08/23 11:58 Order name: CBC with Diff; Complete Time: 13:32 [facility] 08/23 11:58 Order name: Comprehensive Metabolic Panel; Complete Time: 13:32 [facility] 08/23 12:06 Order name: Orbits Wo Con W/ Mpr; Complete Time: 13:32 EDMS Administered Medications: 12:35 Drug: NS 0.9% IV 500 ml Route: IV; Rate: bolus; Site: right antecubital; bp 14:35 Follow up: IV Status: Completed infusion; IV Intake: 500ml bp 12:35 Drug: Ondansetron IVP 4 mg Route: IVP; Site: right antecubital; bp 14:35 Follow up: Response: No adverse reaction bp 12:36 Drug: Ketorolac IVP 15 mg Route: IVP; Site: right antecubital; bp 14:35 Follow up: Response: No adverse reaction bp 14:00 Drug: Rocephin IV 1 grams Route: IV; Rate: per protocol; Site: right forearm; bp 14:35 Follow up: IV Status: Completed infusion; IV Intake: 100ml bp 14:00 Drug: Amoxicillin-Clavulanate PO 875 mg Route: PO; bp 14:34 Follow up: Response: No adverse reaction bp Disposition Summary: 08/23/22 13:35 Discharge Ordered Location: Home kyle Problem: new kyle Symptoms: have improved kyle Condition: Stable kyle Diagnosis - Ocular pain, right eye kyle - Acute maxillary sinusitis kyle - Acute maxillary sinusitis, unspecified kyle - Essential (primary) hypertension kyle Followup: kyle - With: Private Physician - When: 2 - 3 days - Reason: Recheck today's complaints, Continuance of care, Re-evaluation by your physician Followup: kyle - With: - When: Upon discharge from the Emergency Department - Reason: Recheck today's complaints, Continuance of care, Re-evaluation by your physician Followup: kyle - With: Jason Blake MD - When: Upon discharge from the Emergency Department - Reason: Recheck today's complaints, Continuance of care, Re-evaluation by your physician Discharge Instructions: - Discharge Summary Sheet kyle - Hypertension, Adult kyle - Pain Without a Known Cause kyle - Sinusitis, Adult, [id number] kyle - Hypertension, Adult, [id number] kyle - How to Take Your Blood Pressure, [id number] kyle - Managing Your Hypertension kyle Forms: - Medication Reconciliation Form kyle - Thank You Letter kyle - Antibiotic Education kyle - Prescription Opioid Use kyle Prescriptions: - acetaminophen-codeine 300-30 mg Oral tablet - take 2 tablet by ORAL route every 6 hours as needed for pain; 20 tablet; kyle Refills: 0, Product Selection Permitted - Augmentin 875-125 mg Oral Tablet - take 1 tablet by ORAL route every 12 hours for 10 days; 20 tablet; Refills: 0, kyle Product Selection Permitted - Medrol (Emanuel) 4 mg Oral Tablets, Dose Pack - take 1 tablet by ORAL route as directed - follow package instructions; 1 kyle packet; Refills: 0, Product Selection Permitted Signatures: Dispatcher [employer] Valentin Salinas MD MD cha Blanchard, Shelby, RN RN ss Rommel, Yanick, RN RN bp Corrections: (The following items were deleted from the chart) 12:06 12:01 CT-ORBITS WITHOUT CONTRAST ordered. EDMS EDMS
[2022-08-23] MEDS ORDERED: AMOX/K CLAV 875 MG TAB ONE (14:09)
[2022-08-23] MEDS ORDERED: CEFTRIAXONE 1000 MG/VIAL ONE (14:09)
[2022-08-23] MEDS ORDERED: NA CHLORIDE 0.9% 100 ML ONE (14:10)
[2022-08-23 14:58] VITALS: TEMP 98.3
[2022-08-23 15:10] VITALS: BP 129/101; O2SAT 99
== END 2022-08-23 14:35 | disposition home or self-care (01) ==
LOC: ER 11:12
DX: J01.00 Acute maxillary sinusitis, unspecified (principal); I10 Essential (primary) hypertension; F17.210 Nicotine dependence, cigarettes, uncomplicated
CPT/HCPCS: 85025; 36415; 80053; 70480; 76377; J2405; J7040; J0696

== ENCOUNTER 2024-03-29 12:48 | Emergency (ER) | payer OTHER ==
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
--- NOTE | 2024-03-29 13:38 | RAD REPORT ---
Procedure: Chest Single View HISTORY: Cough COMPARISON: 2022 FINDINGS: The lungs appear clear of acute infiltrate. No significant pleural effusion noted. The heart is normal size. IMPRESSION: No acute abnormality is displayed.
[2024-03-29] MEDS ORDERED: predniSONE 20 MG TAB ONE (14:27)
[2024-03-29] MEDS ORDERED: ALBUTEROL 2.5 MG/3 ML NEB SOL ONE (14:27)
[2024-03-29] MEDS ORDERED: IPRATROPIUM BROM 0.5MG/2.5ML ONE (14:27)
[2024-03-29 14:38] LABS: Hematocrit ND % (36.0-45.0); Hemoglobin ND g/dL (12.0-15.0); MCH ND pg (27.0-35.0); MCHC ND g/dL (32.0-36.0); MCV ND fL (80-100); MPV ND fL (7.6-11.3); Platelet Distribution Width ND fL (9.0-17.0); Platelets ND thou/uL (152-406); RBC Red Blood Cell Count ND M/uL (3.86-4.86); Red Cell Distribution Width ND % (12.1-15.2); White Blood Count ND thou/uL (4.3-10.9)
[2024-03-29 14:39] LABS: Absolute Basophils ND K/uL (0-0.5); Absolute Eosinophils ND K/uL (0-0.5); Absolute Lymphocytes (CBC) ND K/uL (0.7-4.9); Absolute Monocytes ND K/uL (0.1-1.3); Absolute Neutrophil ND K/uL (1.8-8.0); Basophils % ND % (0-1.3); Eosinophils % ND % (0-4.4); Lymphocytes % ND % (15.3-44.8); Monocytes % ND % (3.3-12.3); Neutrophils % ND % (41.7-73.7); Nucleated RBC Absolute Count ND (0-0); Nucleated Red Blood Cells % ND % (0-0)
[2024-03-29 14:52] LABS: ALT/SGPT 53 U/L (13-56); AST/SGOT 17 U/L (15-37); Albumin 2.9 g/dL (3.4-5.0); Albumin/Globulin Ratio 0.6 (1.1-1.8); Alkaline Phosphatase 113 U/L (45-117); Anion Gap 9.9 mEq/L (5.0-15.0); BUN Blood Urea Nitrogen 14 mg/dL (7-18); Bicarbonate 25 mEq/L (21-32); Bilirubin Total 0.5 mg/dL (0.2-1.0); Globulin 4.6 g/dL (2.3-3.5); Glomerular Filtration Rate 68 ml/min (=/>90); Glucose Level 122 mg/dL (74-106); NT PRO-BNP 172 pg/mL (<125); Potassium 3.9 mEq/L (3.5-5.1); Protein, Total 7.5 g/dL (6.4-8.2); Sodium Level 136 mEq/L (136-145); Troponin High Sensitivity 6.6 pg/mL (<58.9)
[2024-03-29 14:53] LABS: Bilirubin Direct < 0.2 mg/dL (0-0.2); Bilirubin Indirect, Calculated 0.3 mg/dL (0.2-0.8); SARS-CoV-2 Antigen CONTROL BLUE LINE VIS/BG OK; SARS-CoV-2 Antigen Rapid Res Negative (Negative)
--- NOTE | 2024-03-29 16:38 | EDPHYS ---
Physician Documentation [facility] Name: Madhuri Ta Age: 73 yrs Sex: Female : 1950 Arrival Date: 03/29/2024 Time: 12:48 Bed 17 Private MD: ED Physician Marco Plascencia HPI: 03/29 15:49 This 73 yrs old Female presents to ER via Ambulatory with complaints of Cough, rt Congestion, Shortness Of Breath. 15:49 Patient presents to the ED with cough, congestion as well as shortness of breath with rt past 3 days. Patient recently quit smoking. Denies other acute complaints at this time, symptoms are moderate in severity, no other aggravating or alleviating factors.. Historical: - Allergies: 13:03 No Known Allergies; ko1 - Home Meds: 13:03 None [Active]; ko1 - PMHx: 13:03 Hypertension; ko1 - PSHx: 13:03 None; ko1 - Immunization history:: Adult Immunizations up to date. - Infectious Disease History:: Denies. - Social history:: Smoking status: Patient reports the use of cigarette tobacco products, denies chronic smoking, but will smoke occasionally. ROS: 16:08 Constitutional: Negative for fever, chills, and weight loss, Cardiovascular: Negative rt for chest pain, palpitations, and edema, Abdomen/GI: Negative for abdominal pain, nausea, vomiting, diarrhea, and constipation, MS/Extremity: Negative for injury and deformity, Skin: Negative for injury, rash, and discoloration, Neuro: Negative for headache, weakness, numbness, tingling, and seizure, 16:08 Respiratory: Positive for cough, shortness of breath, Exam: 16:08 Constitutional: This is a well developed, well nourished patient who is awake, alert, rt and in no acute distress. Head/Face: Normocephalic, atraumatic. Chest/axilla: Normal chest wall appearance and motion. Nontender with no deformity. No lesions are appreciated. Cardiovascular: Regular rate and rhythm with a normal S1 and S2. No gallops, murmurs, or rubs. Normal PMI, no JVD. No pulse deficits. Abdomen/GI: Soft, non-tender, with normal bowel sounds. No distension or tympany. No guarding or rebound. No evidence of tenderness throughout. Skin: Warm, dry with normal turgor. Normal color with no rashes, no lesions, and no evidence of cellulitis. MS/ Extremity: Pulses equal, no cyanosis. Neurovascular intact. Full, normal range of motion. Neuro: Awake and alert, GCS 15, oriented to person, place, time, and situation. Cranial nerves II-XII grossly intact. Motor strength 5/5 in all extremities. Sensory grossly intact. Cerebellar exam normal. Normal gait. 16:08 ECG was reviewed by the Attending Physician. 16:08 Respiratory: Faint wheezes heard diffusely, no respiratory distress, Vital Signs: 13:00 BP 132 / 64; Pulse 90; Resp 15; Temp 97.6; Pulse Ox 91% on R/A; ko1 15:25 BP 145 / 67; Pulse 77; Resp 20; Pulse Ox 97% on 3 lpm NC; kj2 16:30 BP 138 / 72; Pulse 80; Resp 20; Temp 98; Pulse Ox 100% on R/A; kj2 MDM: 13:09 Medical Screening Exam initiated rt 16:49 Differential Diagnosis: Other Flu, pneumonia, bronchospasm, CHF. Data reviewed: vital rt signs, nurses notes. I considered the following discharge prescriptions or medication management in the emergency department Medications were administered in the Emergency Department. See MAR. Independent interpretation of the following test(s) in the Emergency Department X-Ray: My interpretation is No infiltrate seen on interpretation of x-ray images. Test considered but Not performed: CT: Do not suspect pulmonary embolism, CT angiogram not indicated. Care significantly affected by the following chronic conditions: Hypertension. Counseling: I had a detailed discussion with the patient and/or guardian regarding the historical points, exam findings, and any diagnostic results supporting the discharge/admit diagnosis, lab results, radiology results, the need for outpatient follow up, to return to the emergency department if symptoms worsen or persist or if there are any questions or concerns that arise at home. Response to treatment: the patient's symptoms have markedly improved after treatment. 03/29 13:10 Order name: Basic Metabolic Panel; Complete Time: 15:15 rt 03/29 13:10 Order name: CBC with Diff; Complete Time: 15:15 rt 03/29 13:10 Order name: LFT's; Complete Time: 15:15 rt 03/29 13:10 Order name: NT PRO-BNP; Complete Time: 15:15 rt 03/29 13:10 Order name: Troponin HS; Complete Time: 15:15 rt 03/29 13:10 Order name: Influenza Screen (a \T\ B); Complete Time: 15:15 rt 03/29 13:10 Order name: SARS RAPID; Complete Time: 15:15 rt 03/29 13:10 Order name: XRAY Chest (1 view); Complete Time: 13:52 rt 03/29 13:10 Order name: Cardiac monitoring; Complete Time: 16:10 rt 03/29 13:10 Order name: EKG - Nurse/Tech; Complete Time: 16:10 rt 03/29 13:10 Order name: IV Saline Lock; Complete Time: 14:28 rt 03/29 13:10 Order name: Labs collected and sent; Complete Time: 14:28 rt 03/29 13:10 Order name: O2 Per Protocol; Complete Time: 14:28 rt 03/29 13:10 Order name: O2 Sat Monitoring; Complete Time: 14:28 rt EC:08 Rate is 79 beats/min. Rhythm is regular, Normal Sinus Rhythm with No ectopy. QRS [place] rt is Normal. MT interval is normal. QRS interval is normal. QT interval is normal. No Q waves. T waves are Normal. No ST changes noted. Interpreted by me. Administered Medications: 14:35 Drug: Albuterol Inhalation 2.5 mg Inhalation once Route: Inhalation; ko1 15:27 Follow up: Response: No adverse reaction kj2 14:35 Drug: Ipratropium Inhalation Aerosol 0.5 mg Inhalation once Route: Inhalation; ko1 15:27 Follow up: Response: No adverse reaction kj2 14:35 Drug: predniSONE PO 40 mg PO once Route: PO; ko1 15:26 Follow up: Response: No adverse reaction kj2 Disposition Summary: 03/29/24 16:37 Discharge Ordered Notes: Location: Home rt Problem: new rt Symptoms: have improved rt Condition: Stable rt Diagnosis - Acute bronchitis, unspecified rt Followup: rt - With: Private Physician - When: 1 - 2 days - Reason: Discharge Instructions: - Discharge Summary Sheet rt - Acute Bronchitis, Adult rt Forms: - Medication Reconciliation Form rt - Antibiotic Education rt - Prescription Opioid Use rt - Patient Portal Instructions rt - Leadership Thank You Letter rt Prescriptions: - albuterol sulfate 90 mcg/actuation Inhalation HFA Aerosol Inhaler - inhale 3 puff INHALATION route every 4 hours as needed; 2 Each; Refills: 0, rt Product Selection Permitted - Prednisone 20 mg Oral tablet - take 2 tablets ORAL route once daily .; 8 tablet; Refills: 0, Product Selection rt Permitted Signatures: Dispatcher [employer] EDMS Shea Vega RN RN ko1 Marco Plascencia MD MD rt Marie Lunsford RN kj2 Corrections: (The following items were deleted from the chart) 13:06 13:03 Social history: Smoking status: Patient denies any tobacco usage or history of. ko1 ko1 13:11 13:11 BASIC METABOLIC PANEL+C.LAB.BRZ ordered. EDMS EDMS 13:11 13:11 CBC+H.LAB.BRZ ordered. EDMS EDMS 13:11 13:11 HEPATIC FUNCTION+C.LAB.BRZ ordered. EDMS EDMS 13:11 13:11 PROBNP+C.LAB.BRZ ordered. EDMS EDMS 13:11 13:11 Troponin High Sensitivity+C.LAB.BRZ ordered. EDMS EDMS 13:11 13:11 Influenza Screen (A \T\ B)+BA.LAB.BRZ ordered. EDMS EDMS 13:11 13:11 SARS-COV-2 Antigen Rapid+I.LAB.BRZ ordered. EDMS EDMS 13:11 13:11 Chest Single View+RAD.RAD.BRZ ordered. EDMS EDMS
--- NOTE | 2024-03-29 16:38 | ER ---
Nurse's Notes [facility] Name: Madhuri Ta Age: 73 yrs Sex: Female : 1950 Arrival Date: 03/29/2024 Time: 12:48 Bed 17 Private MD: Diagnosis: Acute bronchitis, unspecified Presentation: 03/29 13:00 Chief complaint: Patient states: short of breath with congestion for 3 days, getting ko1 worse. Coronavirus screen: congestion, cough unrelated to allergies, difficulty breathing, fatigue, shortness of breath. Ebola Screen: No symptoms or risks identified at this time. Resp Distress? No respiratory distress is noted at this time. Initial Sepsis Screen: Does the patient meet any 2 criteria? No. Patient's initial sepsis screen is negative. Does the patient have a suspected source of infection? No. Patient's initial sepsis screen is negative. Risk Assessment: Do you want to hurt yourself or someone else? Patient reports no desire to harm self or others. Onset of symptoms is unknown. 13:00 Method Of Arrival: Ambulatory ko1 13:00 Acuity: JOSE 3 ko1 Triage Assessment: 13:03 General: Appears uncomfortable, ill, Behavior is calm, cooperative, appropriate for ko1 age. Pain: Denies pain. Respiratory: Reports shortness of breath cough that is. Historical: - Allergies: 13:03 No Known Allergies; ko1 - Home Meds: 13:03 None [Active]; ko1 - PMHx: 13:03 Hypertension; ko1 - PSHx: 13:03 None; ko1 - Immunization history:: Adult Immunizations up to date. - Infectious Disease History:: Denies. - Social history:: Smoking status: Patient reports the use of cigarette tobacco products, denies chronic smoking, but will smoke occasionally. Screenin:[address] [facility] ED Fall Risk Assessment (Adult) History of falling in the last 3 months, kj2 including since admission No falls in past 3 months (0 pts) Confusion or Disorientation No (0 pts) Intoxicated or Sedated No (0 pts) Impaired Gait No (0 pts) Mobility Assist Device Used No (0 pt) Altered Elimination No (0 pt) Score/Fall Risk Level 0 - 2 = Low Risk Maintained a safe environment, Hourly rounding (assess needs \T\ fall precautionary measures) done. Abuse screen: Denies threats or abuse. Denies injuries from another. Nutritional screening: No deficits noted. Tuberculosis screening: No symptoms or risk factors identified. Assessment: 15:22 General: Appears in no apparent distress. Behavior is calm, cooperative. Pain: Denies kj2 pain. Neuro: Level of Consciousness is awake, alert, obeys commands, Oriented to person, place, time, situation. Cardiovascular: Patient's skin is warm and dry. Respiratory: Airway is patent Respiratory effort is unlabored, labored on room air. Respiratory: Breath sounds with rhonchi bilaterally. in upper lobes. GI: No signs and/or symptoms were reported involving the gastrointestinal system. : No signs and/or symptoms were reported regarding the genitourinary system. 16:30 Reassessment: Patient appears in no apparent distress at this time. Patient and/or kj2 family updated on plan of care and expected duration. Pain level reassessed. Patient is alert, oriented x 3, equal unlabored respirations, skin warm/dry/pink. Vital Signs: 13:00 BP 132 / 64; Pulse 90; Resp 15; Temp 97.6; Pulse Ox 91% on R/A; ko1 15:25 BP 145 / 67; Pulse 77; Resp 20; Pulse Ox 97% on 3 lpm NC; kj2 16:30 BP 138 / 72; Pulse 80; Resp 20; Temp 98; Pulse Ox 100% on R/A; kj2 ED Course: 12:51 Patient arrived in ED. im 12:58 Marco Plascencia MD is Attending Physician. rt 13:03 Triage completed. ko1 13:03 Arm band placed on right wrist. Patient placed in waiting room, Patient notified of ko1 wait time. 13:36 XRAY Chest (1 view) In Process Unspecified. EDMS 14:28 SARS RAPID Sent. ty 14:28 Influenza Screen (a \T\ B) Sent. ty 14:28 Basic Metabolic Panel Sent. ty 14:28 CBC with Diff Sent. ty 14:28 LFT's Sent. ty 14:28 NT PRO-BNP Sent. ty 14:28 Troponin HS Sent. ty 15:22 Marie Lunsford, RN is Primary Nurse. kj2 15:24 Patient has correct armband on for positive identification. Bed in low position. Call kj2 light in reach. Provided Education on: call light. 16:49 No provider procedures requiring assistance completed. IV discontinued, intact, kj2 bleeding controlled, No redness/swelling at site. Pressure dressing applied. Administered Medications: 14:35 Drug: Albuterol Inhalation 2.5 mg Inhalation once Route: Inhalation; ko1 15:27 Follow up: Response: No adverse reaction kj2 14:35 Drug: Ipratropium Inhalation Aerosol 0.5 mg Inhalation once Route: Inhalation; ko1 15:27 Follow up: Response: No adverse reaction kj2 14:35 Drug: predniSONE PO 40 mg PO once Route: PO; ko1 15:26 Follow up: Response: No adverse reaction kj2 Medication: 15:25 VIS not applicable for this client. kj2 Outcome: 16:37 Discharge ordered by MD. rt 16:48 Discharged to home ambulatory, kj2 16:48 Condition: stable 16:48 Discharge instructions given to patient, Instructed on discharge instructions, follow up and referral plans. Demonstrated understanding of instructions, follow-up care, medications, Prescriptions given X 3, 16:49 Patient left the ED. kj2 Signatures: Dispatcher [employer] EDMS Shea Vega, RN RN ko1 Marco Plascencia MD MD rt Adrianna Montalvo Tylor ty Jordan, Krystal, MICHAEL RN kj2 Corrections: (The following items were deleted from the chart) 13:06 13:03 Social history: Smoking status: Patient denies any tobacco usage or history of. ko1 ko1
[2024-03-29 19:34] VITALS: BP 138/72; TEMP 98; O2SAT 100
--- NOTE | 2024-04-02 12:43 | EKG ---
Test Date: 2024-03-29 Test Time: 15:40:58 Medical Equipment Repairer: AM MEASUREMENT RESULTS: Intervals: Rate: 79 NH: 164 QRSD: 84 QT: 362 QTc: 415 [place]: P: 75 NH: 164 QRS: 38 T: 57 INTERPRETIVE STATEMENTS: Normal sinus rhythm Normal ECG Compared to ECG 11/03/2015 22:52:37 No significant changes Electronically Signed On 04-02-24 12:35:51 MANAGER OPERATIONS by Bulmaro Thomason
== END 2024-03-29 16:49 | disposition home or self-care (01) ==
LOC: ER 12:48
DX: J20.9 Acute bronchitis, unspecified (principal); F17.210 Nicotine dependence, cigarettes, uncomplicated; Z11.52 Encounter for screening for COVID-19
CPT/HCPCS: 85025; 80048; 36415; 80076; 84484; 83880; 87804 ×2; 71045; 99284; 87811; J7512; J7613; J7644; 93005

== ENCOUNTER 2024-04-23 10:10 | Day surgery (SDC) | payer OTHER ==
[2024-04-23] MEDS ORDERED: CEFOXITIN SODIUM 1 GM/VIAL ONE (10:42)
[2024-04-23 10:49] LABS: Absolute Basophils 0.1 K/uL (0-0.5); Absolute Eosinophils 0.3 K/uL (0-0.5); Absolute Lymphocytes (CBC) 2.3 K/uL (0.7-4.9); Absolute Monocytes 0.4 K/uL (0.1-1.3); Absolute Neutrophil 2.2 K/uL (1.8-8.0); Basophils % 1.4 % (0-1.3); Eosinophils % 5.9 % (0-4.4); Hematocrit 39.6 % (36.0-45.0); Hemoglobin 13.1 g/dL (12.0-15.0); MCH 29.1 pg (27.0-35.0); MCHC 33.1 g/dL (32.0-36.0); MCV 87.8 fL (80-100); MPV 8.2 fL (7.6-11.3); Monocytes % 7.6 % (3.3-12.3); Neutrophils % 42.1 % (41.7-73.7); Nucleated Red Blood Cells % 0.2 % (0-0); Platelets 300 thou/uL (152-406); RBC Red Blood Cell Count 4.51 M/uL (3.86-4.86); Red Cell Distribution Width 13.3 % (12.1-15.2)
[2024-04-23 11:02] LABS: ALT/SGPT 25 U/L (13-56); AST/SGOT 15 U/L (15-37); Albumin 3.2 g/dL (3.4-5.0); Albumin/Globulin Ratio 0.8 (1.1-1.8); Alkaline Phosphatase 108 U/L (45-117); Anion Gap 6.1 mEq/L (5.0-15.0); BUN Blood Urea Nitrogen 14 mg/dL (7-18); Bicarbonate 29 mEq/L (21-32); Bilirubin Total 0.4 mg/dL (0.2-1.0); Globulin 4.1 g/dL (2.3-3.5); Glomerular Filtration Rate 65 ml/min (=/>90); Glucose Level 104 mg/dL (74-106); Lipase 27 U/L (13-75); Potassium 4.1 mEq/L (3.5-5.1); Protein, Total 7.3 g/dL (6.4-8.2); Sodium Level 138 mEq/L (136-145)
[2024-04-23 11:03] LABS: Bilirubin Direct < 0.2 mg/dL (0-0.2); Bilirubin Indirect, Calculated 0.2 mg/dL (0.2-0.8)
[2024-04-23] MEDS: Ringers Lactate 1,000 ML IV ONE (11:33)
[2024-04-23] MEDS ORDERED: ONDANSETRON 4 MG/2 ML VIAL ONE ×2 (11:38→14:50)
[2024-04-23] MEDS ORDERED: LIDOCAINE 2% MPF 5 ML VIAL ONE (11:39)
[2024-04-23] MEDS ORDERED: propofoL 200 MG/20 ML VIAL IV ONE (11:39)
[2024-04-23] MEDS ORDERED: FENTANYL CITR 100 MCG/2 ML ONE (11:39)
[2024-04-23] MEDS ORDERED: ROCURONIUM 50 MG/5 ML VIAL IV ONE (11:39)
[2024-04-23] MEDS ORDERED: MIDAZOLAM HCL 2 MG/2 ML INJ ONE (12:10)
[2024-04-23] MEDS ORDERED: dexAMETHasone 10 MG/ML VIAL ONE (12:21)
[2024-04-23] MEDS ORDERED: EPHEDRINE SULF 50 MG/ML VIAL ONE (12:23)
[2024-04-23] MEDS ORDERED: Mastisol Adhesive Liq ONE (12:55)
[2024-04-23] MEDS ORDERED: GLYCOPYRROLATE 0.2 MG/ML SYR ONE (12:55)
--- NOTE | 2024-04-23 13:06 | P.BOP ---
Preoperative diagnosis: symptomatic cholelithiasis, RUQ abd pain Postoperative diagnosis: same Primary procedure: Laparoscopic cholecystectomy Estimated blood loss: <10cc Specimen: gb Findings: as above Anesthesia: General Complications: None Transferred to: Recovery Room Condition: Good
[2024-04-23] MEDS: HYDROMORPHONE HCL 1 MG/ML INJ ONE (13:34)
[2024-04-23] MEDS ORDERED: HYDROCODONE/APAP 5/325 MG TAB ONE (14:50)
[2024-04-23] MEDS: ONDANSETRON 4 MG/2 ML VIAL IV ONE (14:53)
[2024-04-23] MEDS: HYDROCODONE/APAP 5/325 MG TAB PO ONE (14:54)
[2024-04-23 15:20] VITALS: BP 128/60; TEMP 97.6; O2SAT 95
--- NOTE | 2024-04-23 21:54 | OP ---
Date of Procedure: 04/23/2024 Surgeon: Surinder Fung MD Preoperative Diagnoses: Acute cholecystitis, symptomatic cholelithiasis, right upper quadrant abdomi nal pain. Postoperative Diagnoses: Acute cholecystitis, symptomatic cholelithiasis, right upper quadrant abdom inal pain. Procedure: Laparoscopic cholecystectomy. Estimated Blood Loss: Less than 10 cc. Specimen: Gallbladder. Anesthesia: General plus local. Complications: None. Indications: This is a case of a 73-year-old patient who came to us with above diagnoses. Fully exp lained the benefits, alternatives, and risks of laparoscopic, possible open cholecystectomy, which in clude, but not limited to, infection, bleeding, damage to adjacent structures, anesthesia complicatio n, choledocholithiasis, bile leak, pancreatitis, DE, and even . She also understands this may n ot relieve any symptoms. She might need more than one surgical intervention. She understood, signed a consent. Description Of Procedure: Patient was brought to the operating room, placed in supine position. Ane sthesia was induced without complication. Abdominal area was prepped and draped in the usual sterile fashion. Marcaine 0.5% injected for local anesthetic followed by sharp incision of the skin in the supraumbilical region. Incision was carried down to fascia, which was opened under direct vision. P eritoneum was encountered, opened under direct vision. Vicryl #1 placed inside the fascia. Kathy t rocar was carefully introduced. Pneumoperitoneum was obtained. I placed 3 more trocars, 5 mm each o ne of them in the epigastric, right upper quadrant area. We noticed multiple omental adhesions to th e anterior abdominal wall in the midline and she has an infraumbilical laparotomy, but also above the belly button also showed some scar tissues. Those have to be addressed. There was also omentum att ached to the gallbladder into the liver. In order for us to continue, we have to take care of those. We opened the LigaSure and proceeded to do lysis of adhesions without any enterotomies and taking c are of the hemostasis at the same time. The part of the lysis of adhesions took about half the time of the case. Once we had those adhesions, so when we released the gallbladder, we proceeded to put a grasper in the fundus of the gallbladder, another grasper in the infundibulum, retracting the gallbl adder in the inferolateral fashion exposing the triangle of Calot and obtaining critical view. Cysti c duct and cystic artery were clearly isolated and freed circumferentially, and a connection between those and the gallbladder were clearly identified. I proceeded to ligate those by using at least 3 c lips proximal, 1 clip distal, ligation in the middle. Same was done with the cystic artery. No bile leak. No bleeding. The gallbladder was removed from the liver using Bovie cauterizer and removed f rom the abdominal cavity using EndoCatch through the umbilical incision. Area was inspected once aga in. No bile leak. No bleeding. At that moment, I proceeded to remove the trocars under direct visi on and before that checked the area of the lysis of adhesions. No bleeding. I removed the trocars u nder direct vision, deflating pneumoperitoneum. Closed the fascia with #1 Vicryl. Irrigated subcuta neous tissue, closed that with 3-0 chromic and the skin with 3-0 chromic in a subcuticular fashion an d Steri-Strips on top. Sponge counts and instrument counts were correct. Patient tolerated the proc edure well. Patient was sent to Recovery in stable condition. JEB/CHARU Voice ID: [id number] Report ID: [id number]
--- NOTE | 2024-04-23 21:59 | DS ---
Date of Discharge: 04/23/2024 Diagnoses: Symptomatic cholelithiasis, right upper quadrant abdominal pain, acute cholecystitis. Procedure: Laparoscopic cholecystectomy. Disposition: Home. Activity: As tolerated. No heavy lifting. Discharge Instructions: Follow up in my office in 1 week. Call for appointment at [phone]. Keep a raine dry for 48 hours, then may shower. Keep Steri-Strips intact. JEB/CHARU Voice ID: [id number] Report ID: [id number]
== END 2024-04-23 15:15 | disposition home or self-care (01) ==
LOC: OR 10:10
PROVIDERS: ATTEND Surgery
PROC: 0FT44ZZ Resection of Gallbladder, Percutaneous Endoscopic Approach (ICD-10-PCS; principal; 2024-04-23 12:10)
DX: K80.10 Calculus of gallbladder with chronic cholecystitis without obstruction (principal); I10 Essential (primary) hypertension; F41.9 Anxiety disorder, unspecified; M81.0 Age-related osteoporosis without current pathological fracture; E78.00 Pure hypercholesterolemia, unspecified
CPT/HCPCS: 85025; 80048; 36415; 80076; 83690; 47562; J2704; J2003; J2250; J3010; J1100; J1171; J0694; J2405 ×2; J7120; 88304

== ENCOUNTER 2024-07-30 06:02 | Day surgery (SDC) | payer OTHER ==
[2024-07-30] MEDS: Ringers Lactate 1,000 ML IV ONE (06:30)
[2024-07-30 07:03] LABS: Absolute Basophils 0.1 K/uL (0-0.5); Absolute Eosinophils 0.4 K/uL (0-0.5); Absolute Lymphocytes (CBC) 3.4 K/uL (0.7-4.9); Absolute Monocytes 0.5 K/uL (0.1-1.3); Absolute Neutrophil 2.9 K/uL (1.8-8.0); Basophils % 1.2 % (0-1.3); Eosinophils % 5.9 % (0-4.4); Hematocrit 39.6 % (36.0-45.0); Hemoglobin 13.6 g/dL (12.0-15.0); Lymphocytes % 46.5 % (15.3-44.8); MCH 29.9 pg (27.0-35.0); MCHC 34.2 g/dL (32.0-36.0); MCV 87.6 fL (80-100); MPV 8.6 fL (7.6-11.3); Monocytes % 7.3 % (3.3-12.3); Neutrophils % 39.1 % (41.7-73.7); Platelets 245 thou/uL (152-406); RBC Red Blood Cell Count 4.53 M/uL (3.86-4.86); Red Cell Distribution Width 13.8 % (12.1-15.2)
[2024-07-30 07:17] LABS: Anion Gap 8.8 mEq/L (5.0-15.0); Potassium 3.8 mEq/L (3.5-5.1)
[2024-07-30] MEDS ORDERED: propofoL 200 MG/20 ML VIAL IV ONE ×2 (07:28→07:34)
[2024-07-30] MEDS ORDERED: FENTANYL CITR 100 MCG/2 ML ONE (07:28)
[2024-07-30] MEDS ORDERED: LIDOCAINE 2% MPF 5 ML VIAL ONE (07:31)
[2024-07-30] MEDS ORDERED: dexAMETHasone 10 MG/ML VIAL ONE (07:31)
[2024-07-30] MEDS ORDERED: Phenylephrine HCl 10 MG/ML 1 ML VIAL ONE (07:32)
[2024-07-30] MEDS ORDERED: ONDANSETRON 4 MG/2 ML VIAL ONE (07:32)
[2024-07-30] MEDS ORDERED: DEXMEDETOMIDINE HCL 200 MCG/2 ML VIAL ONE (07:39)
[2024-07-30] MEDS: FAMOTIDINE 20 MG/2 ML VIAL IV ONE (07:56)
[2024-07-30] MEDS: CEFAZOLIN SODIUM 1 GM/VIAL ONE (08:23)
[2024-07-30] MEDS ORDERED: EPHEDRINE SULF 50 MG/ML VIAL ONE (08:26)
--- NOTE | 2024-07-30 08:58 | P.BOP ---
Preoperative diagnosis: tender intramuscular mass Postoperative diagnosis: same Primary procedure: Excisional biopsy of tender intramuscular mass 4x3 cm Estimated blood loss: <10cc Specimen: mass Findings: mass Anesthesia: General Complications: None Drain(s): VIKA drain Transferred to: Recovery Room Condition: Good
[2024-07-30 09:34] VITALS: O2SAT 96
[2024-07-30] MEDS: HYDROMORPHONE HCL 0.5 MG/0.5 ML INJ ONE (09:35)
--- NOTE | 2024-07-30 10:42 | DS ---
Diagnosis: Tender intramuscular mass. Procedure: Excisional biopsy of tender intramuscular mass, 4 x 3 cm. Disposition: Home. Activity: As tolerated. No heavy lifting. Condition: Stable. Discharge Instructions: Follow up in my office in 1 week. Call for appointment at [phone]. VIKA vo in to bulb suction. Record output q.24 hours. Keep area dry until next visit. JEB/CHARU Voice ID: [id number] Report ID: [id number]
[2024-07-30 10:54] VITALS: BP 132/69; TEMP 97.2
--- NOTE | 2024-07-30 10:57 | OP ---
Date of Procedure: 07/30/2024 Surgeon: Surinder Fung MD Preprocedure Diagnosis: Tender right thigh intramuscular mass. Postprocedure Diagnosis: Tender right thigh intramuscular mass. Procedure: Excisional biopsy of tender intramuscular right thigh mass, 4 x 3 cm. Estimated Blood Loss: Less than 10 cc. Specimen: Mass. Findings: Mass is subcutaneous, partially goes through fascia, partially intramuscular. Complications: None. Anesthesia: General plus local. Drain: VIKA #10. Indication: This is a case of a 73-year-old patient who comes to us with a mass bothering her in rig ht thigh region, is palpable. Imaging was reviewed with the patient. The patient wants that excised . The benefits, alternatives, and risks of excision were fully explained, which include, but not park ited to, infection, bleeding, damage to adjacent structures, anesthesia complication, recurrence, MT, and even . She also understands this may not relieve symptoms. She might need more than one s urgical intervention. She understood, signed a consent. Procedure In Detail: The area of concern was marked by me and the patient in the holding room. The patient was brought to the operating room. Placed in supine position. Anesthesia was without compli cation. The right thigh was prepped and draped in sterile fashion. Time-out was called. We tried t o do to make sure we do not lose deep palpation of the mass, so we made an incision in preston t area, carried down to subcutaneous tissue. We noticed the fatty tumor present just on each side of the fascia and partially intramuscular. The mass was carefully removed. Fascia was opened, emilia i nto the muscle, but the muscle does not seem to be involved with it. It is just sitting partially be tween the fibers. The intramuscular part in were removed in 1 unit. The area was irrigat ed. Hemostasis was obtained. Fascia was approximated. Then, because she has area and a chance of seroma, we left a VIKA drain exiting through a different incision and secured in place with a nylon. The subcutaneous tissue was closed with 0 chromic, 3-0 chromic and then subcuticular 4-0 PDS with Steri-Strip on top. Hemostasis was obtained before closure. Also local anesthesia was applied before closure. The patient tolerated the procedure well. Irrigation was done before closure. The patient is on her way to recovery in stable condition. Sponge count and instrument counts were joe ect. JEB/MODL Voice ID: [id number] Report ID: [id number]
== END 2024-07-30 10:45 | disposition home or self-care (01) ==
LOC: OR 06:02
PROVIDERS: ATTEND Surgery
PROC: 0JBL0ZZ Excision of Right Upper Leg Subcutaneous Tissue and Fascia, Open Approach (ICD-10-PCS; principal; 2024-07-30 08:15)
DX: D17.23 Benign lipomatous neoplasm of skin and subcutaneous tissue of right leg (principal)
CPT/HCPCS: 85025; 80048; 36415; 88305; 11404; J2704; J2371; J2003; J3010; J1100; J1171; J2405; J7120; J0690; 88304